=== PATIENT | male | born 1945 | race Caucasian/White ===

== ENCOUNTER 2023-11-27 10:30 | Observation (INO) ==
--- NOTE | 2023-11-03 09:44 | PAT Medication Instructions ---
Medication Instructions Date of Service November 03, 2023 Home Medications Aspirin Enteric Coated (Ecotrin Or Generic *) 81 mg PO DAILY Alfuzosin Hcl (Uroxatral) 10 mg PO DAILY alfuzosin 10 mg tablet,extended release 24 hr 10 mg PO HS finasteride 5 mg tablet 5 mg PO HS levothyroxine 175 mcg tablet 175 mcg PO QAM lisinopril 30 mg tablet 30 mg PO QAM lovastatin 20 mg tablet 20 mg PO HS omeprazole 20 mg capsule,delayed release 20 mg PO QAM oxycodone 5 mg capsule 10 mg PO HS timolol maleate 0.5 % eye drops 1 drp ophthalmic (eye) QAM ASK your prescriber and surgeon Aspirin Enteric Coated (Ecotrin Or Generic *) 81 mg PO DAILY DO NOT take the morning of surgery lisinopril 30 mg tablet 30 mg PO QAM Take morning of surgery With a small sip of water, OTHERWISE NOTHING TO EAT OR DRINK AFTER MIDNIGHT: Alfuzosin Hcl (Uroxatral) 10 mg PO DAILY levothyroxine 175 mcg tablet 175 mcg PO QAM omeprazole 20 mg capsule,delayed release 20 mg PO QAM timolol maleate 0.5 % eye drops 1 drp ophthalmic (eye) QAM Take evening before surgery alfuzosin 10 mg tablet,extended release 24 hr 10 mg PO HS finasteride 5 mg tablet 5 mg PO HS lovastatin 20 mg tablet 20 mg PO HS oxycodone 5 mg capsule 10 mg PO HS Other Notes If you have any questions please call us at [phone] or [phone] or [phone] or [phone]
--- NOTE | 2023-11-10 12:30 | Anesthesiology Consultation ---
Date of Service November 10, 2023 Assessment & Plan (1) Encounter for pre-operative examination: Chart Review Chart Review: Acceptable Risk for Surgery (pending routine PCP visit if available ) and Patient seen in Pre Admission Testing - Awaiting routine PCP visit 11/23/23 (Dr. Obi Gould [facility]) - Patient is NOT an ideal OPJ candidate (patient concerned with urinary retention post op due to BPH) Per PAT appt on 11/10/23, no recent illness/disease exposures, illness related symptoms, or recent illness/disease positive tests. Will leave to surgeon's discretion if preop Covid testing needed Teaching & Discussion Pre-Anesthesia Teaching/Discussion Notes: Instructed NPO after midnight before surgery,except medications with 15 cc of water. Medication instructions provided according to the PAT guidelines. History Surgery Operation Date: 11/27/23 12:00 Proposed Procedures p Right Total Shoulder Arthroplasty Reverse - Albert Alvarez, Height/Weight Height: 5 ft 9 in Weight: 99.9 kg Allergies Allergy/AdvReac Type Severity Reaction Status Date / Time No Known Allergies Allergy Verified 11/03/23 08:26 Medications Home Medications Medication Instructions Recorded Confirmed Last Taken alfuzosin 10 mg tablet,extended 10 mg PO HS 11/03/23 11/03/23 Unknown release 24 hr finasteride 5 mg tablet 5 mg PO 11/03/23 11/03/23 Unknown levothyroxine 175 mcg tablet 175 mcg PO QA 11/03/23 11/03/23 Unknown lisinopril 30 mg tablet 30 mg PO QA 11/03/23 11/03/23 Unknown lovastatin 20 mg tablet 20 mg PO HS 11/03/23 11/03/23 Unknown omeprazole 20 mg capsule,delayed 20 mg PO QA 11/03/23 11/03/23 Unknown release oxycodone 5 mg capsule 10 mg PO HS 11/03/23 11/03/23 Unknown timolol maleate 0.5 % eye drops 1 drp ophthalmic (eye) QA 11/03/23 11/03/23 Unknown Past Medical History Medical History BPH (benign prostatic hyperplasia) Dyslipidemia GERD (gastroesophageal reflux disease) well controlled and stable History of COVID-19 09/2020- no hosp; resolved HTN (hypertension) Hx of hiatal hernia Occ reflux - improved with Omeprazole Hypothyroidism Exercise / Class Metabolic Activity II 4-5 Yardwork/Stairs/Walk up hill (one flight of stairs - no chest pain or SOB) Past Surgical History Surgical History History of esophagogastroduodenoscopy (EGD) History of left knee replacement History of lumbar fusion x 2>> L-2 down Hx of arthroscopic knee surgery Hx of bilateral inguinal hernia repair Hx of colonoscopy Hx of cornea transplant x 4 Hx of tonsillectomy Past Anesthesia History No Hx of Anesthesia Complications and No Family Hx of Anesthesia Complications History of PONV No Hx of PONV and No Hx of Motion Sickness Social History Smoking Status: Never smoker Do You Dip or Chew Tobacco: No Hx Alcohol Use: Yes alcohol intake frequency: a few times a week Hx Substance Use: No substance use type: does not use Review of Systems Patient denies chest pain, shortness of breath, dyspnea on exertion, cough, wheezing, palpitations. No hx of seizures, stroke, VT, apnea/snoring. No hx of blood clots or blood transfusions Physical Exam Vital Signs VITALS BP 150/98 (manually). Check routinely at home- usually 110-120s usually systolically, 70-80s diastolically P 87 TEMP 98.5 SP02 96% RESP 16 Constitutional no acute distress ENMT Mouth: no TMJ clicking Thyromental Distance: > or= 3.5 Finger Breadths (3.5) Mallampati Class: I Permanent implants to side teeth Cap vs crown to side teeth/molar Neck + limited neck extension (mild) Respiratory normal respiratory effort; no respiratory distress Auscultation: lungs clear to auscultation bilaterally; no wheezes Cardiovascular Rate/Rhythm: regular rate and regular rhythm Heart Sounds: no murmur Vessels: no carotid bruit Musculoskeletal Spine: no pain with cervical ROM Extremities: extremities normal to inspection Psychiatric Orientation: alert Lab Results Anesthesia Preop Results Results Anesthesia Widget: WBC 9.35 K/ul (4.8-10.8) 11/10/23 Hgb 15.5 g/dl (14.0-18.0) 11/10/23 Hct 45.3 % (42.0-52.0) 11/10/23 Plt 238 K/uL (130-400) 11/10/23 Na 138 mmol/L (136-145) 11/10/23 K 4.1 mmol/L (3.5-5.1) 11/10/23 Cl 105 mmol/L (98-107) 11/10/23 CO2 28 mmol/L (21-32) 11/10/23 BUN 16 mg/dl (6-23) 11/10/23 Creat 0.74 mg/dl (0.6-1.4) 11/10/23 Glucose Level 106 mg/dl (70-99(Fasting)) H 11/10/23 PT 11.5 Seconds (9.0-12.0) 11/10/23 PTT 26 Seconds (21-31) 11/10/23 INR 1.1 (0.9-1.1) 11/10/23 Blood Type A Positive 11/10/23 Antibody Screen NEGATIVE 11/10/23 Testing Electrocardiogram Date: 11/10/23 Findings: + NSR @ (66bpm) Normal EKG per cardio Chest X-Ray Date: 11/10/23 Findings: + NAD and + cardiomegaly FINDINGS: Cardiac silhouette is enlarged. No pneumothorax, pleural effusion or pulmonary edema. Degenerative changes of the shoulders and spine. Partially imaged lumbar spinal fusion hardware.
[~2023-11-27 10:30] MED LIST: BUPIVACAINE 0.5 % 5 MG/1 ML PF 10ML VIAL ONE
[2023-11-27] MEDS ORDERED: fentaNYL citrate PF 100 MCG/2 ML VIAL ONE (10:49)
[2023-11-27] MEDS ORDERED: MIDAZOLAM HCL 1 MG/ML 2ML VIAL ONE (10:49)
[2023-11-27] MEDS ORDERED: DEXAMETHASONE SOD INJ 4 MG/ML VIAL ONE (10:51)
[2023-11-27] MEDS ORDERED: ONDANSETRON INJ 2 MG/ML 2 ML VIAL ONE (10:51)
[2023-11-27] MEDS ORDERED: PROPOFOL IV EMULSION 10 MG/ML 20 ML VIAL IV ONE (10:51)
[2023-11-27] MEDS ORDERED: GLYCOPYRROLATE 0.2 MG/ML VIAL ONE (10:51)
[2023-11-27] MEDS: LR 15ML/HR IV SCH (11:02)
[2023-11-27] MEDS: ACETAMINOPHEN 500 MG TAB PO SCH ×2 (11:02→16:10)
[2023-11-27] MEDS: LR 60ML/HR IV SCH (11:03)
[2023-11-27] MEDS: GABAPENTIN 300 MG CAP PO SCH (11:03)
[2023-11-27] MEDS: FAMOTIDINE 20 MG TAB PO SCH (11:03)
[2023-11-27] MEDS: dexAMETHasone**PF** 10 MG/ML VIAL IV SCH (11:03)
--- NOTE | 2023-11-27 11:22 | History & Physical Bridge Note ---
Date of Service November 27, 2023 History & Physical Bridge Note I have examined the patient, reviewed the History & Physical and in the interval since the performance of the History & Physical I have noted the following changes of clinical significance: no changes noted
[2023-11-27] MEDS ORDERED: ONDANSETRON INJ 2 MG/ML 2 ML VIAL IV PRN ×2 (11:53→15:03)
[2023-11-27] MEDS ORDERED: fentaNYL citrate PF 100 MCG/2 ML VIAL IV PRN (11:53)
[2023-11-27] MEDS ORDERED: ATROPINE SULFATE 0.1 MG/ML 10ML SYR IV PRN (11:53)
[2023-11-27] MEDS ORDERED: ePHEDrine sulfate 50 MG/ML AMP IV PRN (11:53)
[2023-11-27] MEDS: TRANEXAMIC ACID 1,000 MG **IV Pre-op IV SCH (11:57)
[2023-11-27] MEDS: ceFAZolin 2000MG 2,000 MG/15 ML SYR IV SCH ×2 (12:14→20:47)
[2023-11-27] MEDS ORDERED: ePHEDrine sulfate 50 MG/5 ML SYR ONE (12:39)
[2023-11-27] MEDS: ORTHO JOINT ANESTHETIC ONE (13:04)
[2023-11-27] MEDS: ROPIV 0.5% 246mg, Ketorolac 30mg, EPINEPHrine 0.5mg in NSS INFIL SCH (13:04)
[2023-11-27] MEDS: TRANEXAMIC ACID 1,000 MG **IV Intra-op IV SCH (13:19)
--- NOTE | 2023-11-27 13:29 | Operative Report ---
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 A tenodesis was opted. This was a separate and distinct portion of the procedure. For these reasons, a CPT code modifier 59 will be added to this case. Implants used: I used a [employer]omet Comprehensive reverse total shoulder arthroplasty system with a size 15 press fit micro humeral stem, a +3 offset humeral tray and a standard humeral bearing, a 25 mm large augment baseplate with a 6.5 mm central screw and superior and inferior locking screws, and a size 36 mm eccentric glenosphere. Tyrone arrived at [facility] for the above procedure. He was seen in the preoperative holding area and the operative extremity was identified and signed. He was given a preoperative antibiotic, TXA, and an interscalene nerve block. He was taken back to the operating room, laid on table in supine position, and put under general anesthesia. He was then put into the beachchair position. The shoulder was then prepped and draped in sterile fashion. A timeout was done and the patient and the operative extremity was properly identified. A deltopectoral approach was used. Dissection was taken down through the fascia and the deltoid was retracted laterally and the conjoined tendon was retracted medially. The anterior shoulder was exposed. The biceps groove was opened up and the biceps tendon was examined extensively. The biceps tendon demonstrated enlargement and inflammatory changes consistent with longstanding inflammation in the context of osteoarthritis and cuff arthropathy. The long head of the biceps tendon was then tenodesed to the upper border of the pectoralis major. This was a separate and distinct portion of the procedure. The subscapularis was then directly released off the lesser tuberosity with a peel technique. The inferior capsule was released and the humeral head was dislocated. A canal finding reamer was sent down the center of the humeral canal. Sequential reaming up to a size 15 reamer was done. Off that reamer, a proximal humeral resection guide was placed. The proximal humerus was resected at 135 of inclination and 25 of retroversion. Osteophytes were then removed and the glenoid was exposed. Time was spent doing a complete capsular and labral release. A ZimTelanetix Signature One guide was then attached onto the anterior rim of the glenoid. A 3.2 mm Steinmann pin was then placed in the reverse total shoulder arthroplasty hole. The glenoid baseplate was then reamed. The final size 25 mm large augment baseplate was then impacted in the place. A 6.5 mm central screw was then placed followed by superior and inferior locking screws. A 36 mm eccentric glenosphere was then impacted into place. Surrounding soft tissues were then injected with 100 cc an orthopedic pain control cocktail. The proximal humerus was then exposed. Sequential broaching of the humerus up to a size 15 broach was done. Off that broach a +3 offset humeral tray was trialed. The shoulder was then reduced, brought through a full range of motion, and felt to be stable. The shoulder was then dislocated and the broach was removed. The final size 15 micro press-fit humeral stem was then impacted into place. A standard +3 offset Humeral bearing was then snapped onto a humeral tray. The humeral tray was then impacted onto the humeral stem. The shoulder was once again reduced, brought through a full range of motion, and felt to be stable. The subscapularis was poor very poor quality and unable to be repaired. A dilute betadyne lavage was then done for 3 minutes. The joint was then irrigated with normal saline solution. Hemostasis was obtained. The interval was closed with 2-0 Vicryl suture. The skin was then closed with 2-0 Vicryl and rylie. A Silverlon dressing was placed and the arm was rested in a regular arm sling. He was then extubated and transferred to a hospital bed. He taken to the postanesthesia care unit in stable condition. He tolerated the procedure well. Albert Sanchez PA-C, was present for the entire procedure. He was critical for pa tient positioning, prepping, draping, retraction exposure, wound closure and application of sterile dressing. I attest to the content of the Intraoperative Record and any orders documented therein. Any exceptions are noted below.
--- NOTE | 2023-11-27 14:10 | XRay Report ---
XR shoulder RT min 2V routine HISTORY: 78 years-old Male Post shoulder surgery right shoulder arthroplasty COMPARISON: 11/10/2023 TECHNIQUE: 2 views of the right shoulder FINDINGS: Right shoulder arthroplasty demonstrates satisfactory alignment. Overlying skin rylie with expected postoperative soft tissue swelling and deep tissue air. IMPRESSION: Total joint arthroplasty with expected postoperative changes. ACT 112: Negative or not required by law. The above report was generated using voice recognition software. It may contain grammatical, syntax o r spelling errors. Electronically signed by: Yakov Lee M.D. 11/27/2023 2:08 PM
--- NOTE | 2023-11-27 14:17 | Anesthesiology Progress Note ---
Date of Service November 27, 2023 Anesthesia Post Procedure Vital Signs Vital Signs: Temp Pulse Pulse Resp BP Pulse Ox O2 Del Method 11/27/23 14:05 83 15 151/98 H 92 Room Air 11/27/23 13:55 96 H 22 149/96 H 94 Room Air 11/27/23 13:45 93 H 19 143/96 H 98 Room Air 11/27/23 13:39 36.4 C L 94 H 16 138/91 98 Oxymask 11/27/23 11:23 36.8 C 72 20 157/99 H 97 Room Air O2 Flow Rate 11/27/23 14:05 11/27/23 13:55 11/27/23 13:45 11/27/23 13:39 6 11/27/23 11:23 Transfer of Care Handoff Completed per policy Notes Mental Status: alert / awake / arousable Patient Amnestic to Procedure: Yes Nausea / Vomiting: adequately controlled Pain: adequately controlled Airway Patency, RR, SpO2: stable & adequate BP & HR: stable & adequate Hydration State: stable & adequate Anesthetic Complications: no major complications apparent
[2023-11-27] MEDS ORDERED: oxyCODONE HCL IR 5 MG TAB (IMMEDIATE RELEASE) PO PRN (15:03)
[2023-11-27] MEDS ORDERED: NALOXONE HCL 0.4 MG/1 ML VIAL/CARP IV PRN (15:03)
[2023-11-27] MEDS ORDERED: METOCLOPRAMIDE HCL INJ 5 MG/ML 2 ML VIAL IV PRN (15:03)
[2023-11-27] MEDS ORDERED: HYDROmorphone INJ 0.5 MG/0.5 ML SYR IV PRN (15:03)
[2023-11-27] MEDS ORDERED: MAGNESIUM HYDROXIDE SUSP 30 ML UDC PO PRN (15:03)
[2023-11-27] MEDS ORDERED: bisacodyL 10 MG SUPP PR PRN (15:03)
[2023-11-27] MEDS: SODIUM CHLORIDE 0.9% 1,000 ML IV SCH (15:30)
[2023-11-27] MEDS: KETOROLAC TROMETHAMINE 15 MG/ML VIAL IV SCH (16:10)
[2023-11-27] MEDS: LOVASTATIN 20 MG TAB PO SCH (20:40)
[2023-11-27] MEDS: SENNA 8.6 MG TAB PO SCH (20:40)
[2023-11-27] MEDS: FINASTERIDE 5 MG TAB PO SCH (20:40)
[2023-11-27] MEDS: DOCUSATE SODIUM 100 MG CAP PO SCH (20:40)
[2023-11-27] MEDS: TAMSULOSIN HCL 0.4 MG CAP PO SCH (20:40)
[2023-11-28] MEDS: LEVOTHYROXINE SODIUM 175 MCG TABLET PO SCH (05:52)
[2023-11-28] MEDS: PANTOprazole 40 MG TAB PO SCH (07:23)
[2023-11-28] MEDS: lisinopril 10 MG TAB PO SCH (07:24)
[2023-11-28] MEDS: MULTIVITAMIN TAB PO SCH (07:24)
[2023-11-28] MEDS: dexAMETHasone 4 MG TAB PO SCH (07:24)
[2023-11-28] MEDS: TIMOLOL MALEATE 0.5% OP SOLN 5 ML BTL OPB SCH (07:25)
--- NOTE | 2023-11-28 07:26 | Orthopedic Progress Note ---
Date of Service November 28, 2023 Assessment & Plan (1) Status post reverse total replacement of right shoulder: Overall he is doing very well. He is not having much pain in the right shoulder. He will be seen by physical therapy today for ambulation and range of motion exercises. He can be discharged home later today. He will follow-up with orthopedics in 2 weeks. Catarino Hansen was seen and examined at bedside this morning. Overall is doing very w ell. Is not having much pain in the right shoulder. He was able to get some sleep last night. Has no complaints.. Review of Systems All systems reviewed & are unremarkable except as noted in HPI & below. Physical Exam On physical examination of right shoulder, the dressing is clean and dry. He is wearing his sling as instructed. He has a little bit of flexion of his fingers but he has no extension of his wrist or his fingers at this time. Results & Data Results & Data Laboratory Results . Diagnostic Findings Postoperative x-rays of the right shoulder show the prosthesis to be in anatomic alignment without any evidence of fracture, screws, or loosening.. PG Care Time/CCT Total # of Minutes Spent Total Time Spent with Patient: Total time spent is greater than 50% in coordination of care (as documented) at patient's floor/unit and/or counseling patient: Coding Level of Care Code 85282 Post Operative Follow-Up Diagnoses Status post reverse total replacement of right shoulder Z96.611
--- NOTE | 2023-11-28 07:27 | Discharge Summary ---
Date of Service November 28, 2023 Principal Diagnosis Same as "Discharge Diagnosis" noted below under Discharge Instructions. Discharge Exam On physical examination of right shoulder, the dressing is clean and dry. He is wearing his sling as instructed. He has a little bit of flexion of his fingers but he has no extension of his wrist or his fingers at this time. Discharge Data Procedures Performed Operation Date: 11/27/23 12:00 Actual Procedures p Right Total Shoulder Arthroplasty Reverse(Right) - Albert Alvarez DO Ordered Studies 11/27/23 05:00 US - OR guided needle placemen Routine Hospital Course (1) Status post reverse total replacement of right shoulder: On November 27, 2023 Tyrone arrived at [facility] and underwent a right reverse shoulder replacement without complication. He had a general anesthetic and a right interscalene nerve block. Postoperatively he was placed in sling and transferred to the general orthopedic floors. His hospital course was uneventful. On postop day 1, his vital signs were stable and his pain is well-controlled. He was able to participate well with physical therapy doing ambulation and range of motion exercises. He was then discharged home. He will follow-up orthopedics in 2 weeks. PG Care Time/CCT Total # of Minutes Spent Total Time Spent with Patient: Total time spent is greater than 50% in coordination of care (as documented) at patient's floor/unit and/or counseling patient: Discharge Plan Discharge Items Patient Disposition: Home - Self-Care Reason For Visit: DJD Shoulder Right Discharge Diagnosis: Right reverse shoulder replacement Activity: Per Instructions section Non-emergency contact: Surgeon Call non-emergency contact if: your wound has increased redness and your wound has increased drainage Follow-up/Referrals: Obi Gould DO [Primary Care Provider] - Diet: Regular Addtl Attending Provider Instructions: Activity and Therapy Recommendations: * If you are using [facility] then therapy will be provided at your home until they feel you have accomplished all of your goals. * If you are using [facility] then Physical Therapy will be provided until they feel you are ready to start Outpatient Physical Therapy. * If you are not using home therapy then Outpatient Physical Therapy should start about 3-5 days from your day of surgery. Therapy will last about 8-12 weeks * Wear your sling for 3 weeks, unless otherwise instructed. You may remove your sling to shower and to dress, but otherwise, you should be in your sling at all times, including while sleeping * The shoulder replacement is very stable and you can use your hand while in the sling * You were shown a series of exercises in the hospital. Do these exercises daily including the exercises you were shown in physical therapy. Medications: * Narcotic You will likely be sent home from the hospital with a prescription for the narcotic pain medication that worked best throughout your stay. * Cefadroxil -take the antibiotic twice a day for 10 days to help prevent infection. * Other medications may be prescribed for specific circumstances. If you have any questions, please call the office at . * Resume previous home medications unless otherwise instructed Dressing Care: Leave the Silverlon dressing in place for 7 days. After 7 days you may remove the dressing. If the incision is not draining then you may leave the rylie open to air. If there is a little bit of drainage or if the rylie are getting stuck on your clothing then cover the incision with a dry dressing. The rylie will be removed at your 2 week follow-up appointment. Showering: You may shower with the Silverlon dressing in place. Do not let the shower spray hit the dressing directly. Pat the Silverlon dressing dry. If the dressing becomes wet underneath, then simply remove the dressing. Keep the incision dry until you are 7 days out from the day of surgery. After 7 days you may remove the Silverlon dressing and shower with the rylie exposed. Let soapy water run over the rylie and pat them dry. Do not scrub or soak the incision. Things To Watch For: * Drainage from the incision site that occurs more than one week after your surgery. * Increased redness at the incision site. * Fever above 102 degrees Fahrenheit. * Unusual chest pain or shortness of breath. * Call [facility] at with any of the above problems Follow-Up Visit: Follow-up with Dr. Alvarez's PA (Albert Sanchez) 2-3 weeks after your day of surgery. He will remove your rylie and answer any questions. If you have any additional questions or concerns, Dr Alvarez is usually in the office at the same time and will be available An appointment was probably scheduled when you signed-up for surgery in the office. If you have any questions call More detailed instructions as well as Frequently Asked Questions were provided in a folder by our office when you signed-up for surgery. Please review these instructions when you get home. If you have any further questions or concerns, please feel free to call the office at [phone] Pending Studies at Discharge: No Stand-Alone Forms: My [facility] Medications and DC Order Prescriptions: New oxycodone 5 mg Tablet 5 mg PO Q4H PRN (Reason: pain) Qty: 30 0RF cefadroxil 500 mg capsule 500 mg PO BID 10 Days Qty: 20 0RF Continued levothyroxine 175 mcg tablet 175 mcg PO QAM oxycodone 5 mg capsule 10 mg PO HS lisinopril 30 mg tablet 30 mg PO QAM omeprazole 20 mg Capsule,Delayed Release(Dr/Ec) 20 mg PO QAM lovastatin 20 mg tablet 20 mg PO HS timolol maleate 0.5 % drops 1 drp ophthalmic (eye) QAM finasteride 5 mg tablet 5 mg PO HS alfuzosin 10 mg tablet extended release 24 hr 10 mg PO HS Discharge Orders: Discharge Order (Routine); Ordered 11/28/23 Ordered By: Albert Alvarez Admission Data Admit Date/Time: 11/27/23 13:40 Attending Provider: Albert Alvarez Admit Provider: Albert Alvarez Primary Care Provider: Obi Gould
--- OUTSIDE RECORDS SUMMARY | 2023-11-28 09:14 | External Medical Summary | Continuity of Care Document ---
Author Name Unknown Organization [facility] Address [address] [place] [address] Phone [phone] Care Team Providers Care Metal Sorter Name Role Phone Cesar Arthur DO Care Team Information Rece iver [phone] Michael Barry MD Care Team Information Recei phill [phone] Shelley Madrigal MD Care Team Information Receive r [phone] Emiliano Benton MD Care Team Information Recei phill [phone] Jose Resendiz MD Care Team Information Rec eiver [phone] Problems Active Problems Provider Date Essential hypertension Obi Gould DO O nset: 12/27/2015 Hypothyroidism Obi Gould DO Onset: 0 12/27/2015 Pure hypercholesterolemia Ana Laura Palacios Onset: 12/27/2015 Bilateral primary open angle glaucoma Obi Gould DO Onset: 01/08/2018 Note: Per: Document: 6 - Retinal Eye Exam Benign prostatic hyperplasia without outflow obstruction Obi Gould DO Onset: 08/12/2017 History of polyp of colon Ana Laura Palacios Onset: 01/08/2018 Note: Per: Document: 4 - Colonoscopy Operative Report Generalized anxiety disorder Obi Gould DO Onset: 06/06/2022 Cerebral atrophy Obi Gould DO Onset: 05/21/2023 Social History Type Date Description Comments Sex Unknown Tobacco Use Reviewed: 05/21/23 Never Smoked Cigarette s Smoking Status Reviewed: 05/21/23 Never Smoked Cigaret susy Tobacco Use Reviewed: 05/21/23 Never Smoked Cigars Tobacco Use Reviewed: 05/21/23 Never Smoked A Pipe Smokeless Tobacco 05/21/2023 Never Used Smo keless Tobacco ETOH Use Occasionally con sumes alcohol Recreational Drug Use Never Used Drugs Exercise Type/Frequency 09/13/2019 Exercises regular ly [employer] - 3x a week Seat Belt/Car Seat sometimes uses seat be lt Guns in Home No Allergies and adverse reactions Active Allergies Criticality Reaction | Severity Comments Date Carvedilol Unable to assess criticality Urinary Retention. 11/13/2022 Inactive Allergies NKDA Unable to assess criticality 04/17/2015 Medications Active Medications SIG Qnty Indications Order ing Provider Date Aspirin Adult Low Nhaj67ap Tablets DR i by mouth every day R20.2 Quiana Lemus MD 05/08/2023 Proair Wxlydobgnc937(90Base) mcg/Act Aerosol inhale 1 times every 6 hours for shortness of breath/ cough (ok to sub ventolin if insurance prefers that) 1units R05.1 Obi Gould, DO 02/17/2023 Uvbshwquxe72ew Tablets Take One Tablet By Mouth Every Day For High Blood Pressure 90tabs I10 Obi Gould, DO 04/02/2022 Levothyroxine Hbsalt348jsd Tablets Take One Tablet By Mouth Every Day For Thryoid - 30-45 Min Prior To Breakfast - 90tabs E03.9 Obi Gould, DO 11/12/[address] Take 2 Capsules By Mouth Every Day For Stomach 180caps Obi Gould, DO 09/25/2015 Timolol Maleate0.5% Solution 1 drop each eye daily 15ml Obi Gould, DO 04/17/2015 Alfuzosin HCL ER10mg Tablets ER 24HR Take 1 Tablet By Mouth Every Day For Prostate 90tabs N40.0 Obi Gould, DO 04/17/2015 Uepmhtjajyr2rx Tablets Take 1 Tablet By Mouth Every Day For Prostate 90tabs N40.0 Obi Gould, DO 04/17/2015 Ghwjzijogm06fq Tablets Take 1 Tablet By Mouth Every Day For Cholesterol Treatment 90tabs E78.00 Obi Gould, DO 04/17/2015 Oxycodone HCL5mg Tablets 1.5 tablet by mouth q12-24 hours as needed (per Daren Louie = LEWIS) Unknown Medications Administered in Office Medication SIG Qnty Indications Ordering Provider Date Injection Kenalog 10 MG [facility] [id number] Obi Stephens Ana Laura ParkBryanna, DO 11/28/2020 Immunizations CPT Code Status Date Vaccine Lot # [id number] Given 07/27/2023 Sarscov2 Vaccin e 50 mcg/0.5 ML For Im Use 12 Yrs And Older 32826 Given 07/27/2023 Influenza Vacci ne-Administered at another facility 73223 Given 07/01/2022 Pfizer Sars-Cov -2 (Covid-19) Vx, BiValent Booster, 12+ 31020 Given 07/01/2022 Influenza Vaccine High Do se 0.5ML Age 65 & > 52738 Given 07/04/2021 Pfizer Sars-Cov -2 (Cov-19) vacc 30mcg/0.3ML 12Y+ EMR Doc Only U-FLU Given 06/19/2021 Influenza,Unspecified 29424 Given 12/28/2020 Pfizer Sars-Cov -2 (Cov-19) vacc 30mcg/0.3ML 12Y+ EMR Doc Only 25720 Given 12/07/2020 Pfizer Sars-Cov -2 (Cov-19) vacc 30mcg/0.3ML 12Y+ EMR Doc Only 66070 Given 07/05/2020 Influenza Virus Vaccine, Quadrivalent, Im Use 45142 Given 01/25/2020 Shingrix 94605 Given 08/04/2019 Influenza Vacci ne-Administered at another facility 64674 Given 08/04/2019 Shingrix 73485 Given 07/05/2018 Influenza Virus Vaccine, Recombinant Dna[place] [address] Given 08/05/2017 Influenza Vac, Split, Preservative Free High Dose Age 65 & > 83308 Given 07/02/2016 Pneumococcal Vaccine/Pneu movax 23 [id number] 42508 Given 08/01/2015 Influenza Virus Vaccine, Quadrivalent, Im Use 26850 Given 06/28/2015 Pneumococcal Conjugate-Pr evnar 13 [id number] 18689 Given 08/19/2014 Influenza Vac, Split 3 Yr s And Up 62784 Given 06/19/2014 Tdap (Tetanus, diphtheria & acel. pertussis) Adacel or Boostrix 88240 Refused 07/02/2016 Pneumococcal Vaccine/Pneu movax 23 [id number] Refused 07/02/2016 Influenza Vac, Split 3 Yr s And Up Vital Signs Date Vital Result Comment 05/21/2023 8:50am BP Systolic 138 mmHg BP Diastolic 75 mmHg Body Temperature 97.0 F Heart Rate 72 /min Respiratory Rate 12 /min Weight 211.25 lb Weight 95.823 kg Height 67.5 inches 5'7.50" BMI (Body Mass Index) 32.6 kg/m2 [place] Body Weight 148 lb 05/08/2023 4:12pm BP Systolic 156 mmHg BP Diastolic 94 mmHg BP Systolic Recheck 144 mmHg BP Diastolic Recheck 96 mmHg Body Temperature 98.3 F Heart Rate 84 /min Results Test Acquired Date Facility Test Result H/L Range N ote General Health Panel 11/16/2023 [facility] [address] [place] [address] [phone] TSH 0.86 uIU/mL 0.50-6.00 Comp. Met 11/16/2023 [facility] [address] [place] [address] [phone] Glucose 96 mg/dL 70-110 BUN 15 mg/dL 6-25 Creatinine 0.7 mg/dL 0.7-1.3 Sodium 140 mEq/L 135-145 Potassium 4.3 mEq/L 3.5-5.0 Chloride 105 mEq/L 95-107 Co-2 26 mEq/L 24-31 Alk Phos 55 IU/L 43-122 Alt(SGPT) 19 IU/L 10-40 Ast(Sgot) 18 IU/L 3-42 T.Bilirubin 0.9 mg/dL 0.1-1.3 Calcium 9.8 mg/dL 8.5-10.6 Tot.Protein 6.5 g/dL 5.8-8.0 Albumin 4.4 g/dL 3.0-5.2 Globulin 2.1 g/dL 2.0-3.4 GFR 117 ML/MIN/1.73SQM >60 CBC W/Diff 11/16/2023 [facility] [address] [place] [address] [phone] WBC 10.9 10^3/M3 High 3.1-9.2 RBC 5.04 10^6/M3 4.00-5.80 HGB 15.6 GR/DL 12.5-17.5 HCT 46.5 % 37.5-52.5 MCV 92.1 CUMICR 82.6-95.8 MCH 31.0 PICOGR 27.9-32.9 MCHC 33.7 % 32.6-35.4 RDW 14.2 % 11.4-14.6 PLT 224 10^3/M3 140-350 MPV 8.5 CUMICR 7.0-10.6 %Neut 64.8 % 40.0-75.0 %Lymph 20.9 % 17.0-45.0 %[place] 11.6 % High 1.0-11.0 %Eos 2.2 % 0.0-6.0 %Baso 0.5 % 0.0-2.0 #Neut 7.1 10^3/M3 1.5-8.0 #Lymph 2.3 10^3/M3 0.8-3.2 #[place] 1.3 10^3/M3 High 0.0-0.8 #Eos 0.2 10^3/m3 0.0-0.4 #Baso 0.0 10^3/m3 0.0-0.2 Lipid 11/16/2023 [facility] [address] [place] [address] [phone] Cholesterol 112 mg/dL 0-200 1 Triglyceride 59 mg/dL 0-150 2 HDLD 46 mg/dL See Comment 3 Measured LDL 63 mg/dL 0-130 4 Calc VLDL 11.8 mg/dL See Comment 5 Chol/HDL 2.4 RATIO See Comment 6 Non-HDL 66 mg/dL See Comment 7 Laboratory test finding 11/16/2023 [facility] [address] [place] [address] [phone] PSA Screen 0.2 ng/mL 0.0-4.0 Urinalysis 11/16/2023 [facility] [address] [place] [address] [phone] Color LIGHT-YELLO W Appearance CLEAR Clear Spec.Grav. 1.020 1.005-1.025 Leukocytes NEGATIVE Negative Nitrite NEGATIVE Negative PH 5.5 Low 6.0-7.5 Protein NEGATIVE Negative Urine Glucose NEGATIVE Negative Ketone NEGATIVE Negative Urobilinogen NORMAL E.U./DL Normal Bilirubin NEGATIVE Negative Blood NEGATIVE Negative WBC-U 0-2 /HPF 0-5/HPF RBC-U 0-2 /HPF 0-5/HPF Bacteria NONE SEEN None Seen Squamous 0-2 /HPF 0-5/HPF 1 CHOLESTEROL Less than 200mg/dl Low risk 201-239 mg/dl Borderline risk Equal to or greater 240mg/dl High risk 2 TRIGLYCERIDES Less than 150mg/dl Normal 150-199mg/dl Borderline 200-499mg/dl High Greater than 500mg/dl Very High 3 HDL <40mg/dl Elevated Risk 41-59mg/dl Risk >=60mg/dl Least Risk 4 LDL <100mg/dl Optimal 100-129mg/dl Near Optimal 130-159mg/dl Borderline High 160-189mg/dl High >=190 Very High 5 VLDL Less than 30mg/dl Normal 6 CHOL/HDL <4.0 Optimal 4.0-5.0 Borderline >6.0 High Risk 7 NON-HDL 30mg/dl higher than LDL Target Procedures Date Code Description Status 11/16/2023 G0103 PSA Blood Screen Completed 11/13/2023 83137 Therapy Proc, Neuromuscular Reeducation Of Movement Completed 11/13/2023 35019 Therapy Proc 1/> Area 15Min Ea Completed 11/11/2023 65936 Therapy Proc, Neuromuscular Reeducation Of Movement Completed 11/11/2023 95045 Therapy Proc 1/> Area 15Min Ea Completed 11/06/2023 09139 Therapy Proc, Neuromuscular Reeducation Of Movement Completed 11/06/2023 20090 Therapy Proc 1/> Area 15Min Ea Completed 11/04/2023 52394 Physical Therapy Evaluation High Complexity Completed 11/04/2023 46907 Therapy Proc, Neuromuscular Reeducation Of Movement Completed 11/04/2023 07837 Therapy Proc 1/> Area 15Min Ea Completed 05/21/2023 3078F PVRP Diastolic BP <80 mmHg C ompleted 05/21/2023 3075F PVRP Systolic BP 130 To 139 MMHG Completed 12/03/2022 29330274 Colonoscopy Completed Medical Devices Description No Information Available Encounters Type Date Location Provider Dx Diagnosis Office Visit 05/21/2023 8:45a [facility] Obi Gould, DO I10 Essential (primary) hypertension R20.2 Paresthesia of skin E03.9 Hypothyroidism, unsp ecified E78.00 Pure hypercholestero lemia, unspecified 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, unspecified Assessments Date Code Description Provider 11/16/2023 I10 Essential (primary) hypertroge nugent Obi Gould, DO 11/16/2023 I10 Essential (primary) hyperten jovanna Lab - [facility] 11/16/2023 E78.00 Pure hypercholesterolemia, u nspecified Obi Gould, DO 11/16/2023 E78.00 Pure hypercholesterolemia, u nspecified Lab - [facility] 11/16/2023 Z12.5 Encounter for sc reening for malignant neoplasm of prostate Obi Gould, DO 11/16/2023 Z12.5 Encounter for sc reening for malignant neoplasm of prostate Lab - [facility] 11/13/2023 M25.511 Pain in right shoulder Maida S Aaronsky, DPT 11/11/2023 M25.511 Pain in right shoulder Yadi than Warg, DPT 11/06/2023 M25.511 Pain in right shoulder Maida S Tomaslosky, DPT 11/04/2023 M25.511 Pain in right shoulder Yadi than Warg, DPT 05/21/2023 I10 Essential (primary) hypertroge nugent Obi Gould, DO 05/21/2023 R20.2 Paresthesia Obi vela, DO 05/21/2023 E03.9 Hypothyroidism, unspecified Obi Gould, DO 05/21/2023 E78.00 Pure hypercholesterolemia, u nspecified Obi Gould, DO 05/21/2023 G31.9 Degenerative dis ease of nervous system, unspecified Obi Gould DO Plan of Treatment Future Appointment(s):* 11/23/2023 1:15 pm - Obi Gould DO at [facility] Functional Status Description No Information Available Mental Status Description No Information Available Referrals Description No Information Available
--- OUTSIDE RECORDS SUMMARY | 2023-11-28 09:14 | External Medical Summary | Continuity of Care Document ---
Author Name Unknown Organization [facility] Address [address] [place] [address] Phone [phone] Care Team Providers Care Gem Technician Name Role Phone Cesar Arthur DO Care Team Information Rece iver [phone] Michael Barry MD Care Team Information Recei phill [phone] Shelley Madrigal MD Care Team Information Receive r [phone] Emiliano Benton MD Care Team Information Recei phill [phone] Jose Resendiz MD Care Team Information Rec eiver [phone] Problems Active Problems Provider Date Essential hypertension [...] Order ing Provider Date Aspirin Adult Low Oxln79el Tablets DR i by mouth every day R20.2 Quiana Lemus MD 05/08/2023 Proair Namguaapxc092(90Base) mcg/Act Aerosol inhale 1 times every 6 hours for shortness of breath/ cough (ok to sub ventolin if insurance prefers that) 1units R05.1 Obi Gould, DO 02/17/2023 Uzmyizwitd76fp Tablets Take One Tablet By Mouth Every Day For High Blood Pressure 90tabs I10 Obi Gould, DO 04/02/2022 Levothyroxine Ppkyka014vhp Tablets Take One Tablet By Mouth Every Day For Thryoid - 30-45 Min Prior To Breakfast - 90tabs E03.9 Obi Gould, DO 11/12/[address] Take 2 Capsules By Mouth Every Day For Stomach 180caps Obi Gould, DO 09/25/2015 Timolol Maleate0.5% Solution 1 drop each eye daily 15ml Obi Gould, DO 04/17/2015 Alfuzosin HCL ER10mg Tablets ER 24HR Take 1 Tablet By Mouth Every Day For Prostate 90tabs N40.0 Obi Gould, DO 04/17/2015 Jdotuvedfzx7fn Tablets Take 1 Tablet By Mouth Every Day For Prostate 90tabs N40.0 Obi Gould, DO 04/17/2015 Aucwtpspcc18il Tablets Take 1 Tablet By Mouth Every Day For Cholesterol Treatment 90tabs E78.00 Obi Gould, DO 04/17/2015 Oxycodone HCL5mg Tablets 1.5 tablet by mouth q12-24 hours as needed (per Daren Louie = LEWIS) Unknown Medications Administered in Office Medication SIG Qnty Indications Ordering Provider Date Injection Kenalog 10 MG [facility] [id number] Obi Stephens Ana Laura ParkBryanna, DO 11/28/2020 Immunizations CPT Code Status Date Vaccine Lot # [id number] Given 07/27/2023 Sarscov2 Vaccin e 50 mcg/0.5 ML For Im Use 12 Yrs And Older 55412 Given 07/27/2023 Influenza Vacci ne-Administered at another facility 08191 Given 07/01/2022 Pfizer Sars-Cov -2 (Covid-19) Vx, BiValent Booster, 12+ 07277 Given 07/01/2022 Influenza Vaccine High Do se 0.5ML Age 65 & > 10850 Given 07/04/2021 Pfizer Sars-Cov -2 (Cov-19) vacc 30mcg/0.3ML 12Y+ EMR Doc Only U-FLU Given 06/19/2021 Influenza,Unspecified 16961 Given 12/28/2020 Pfizer Sars-Cov -2 (Cov-19) vacc 30mcg/0.3ML 12Y+ EMR Doc Only 02952 Given 12/07/2020 Pfizer Sars-Cov -2 (Cov-19) vacc 30mcg/0.3ML 12Y+ EMR Doc Only 67121 Given 07/05/2020 Influenza Virus Vaccine, Quadrivalent, Im Use 76000 Given 01/25/2020 Shingrix 88082 Given 08/04/2019 Influenza Vacci ne-Administered at another facility 23534 Given 08/04/2019 Shingrix 43055 Given 07/05/2018 Influenza Virus Vaccine, Recombinant Dna[place] [address] Given 08/05/2017 Influenza Vac, Split, Preservative Free High Dose Age 65 & > 32379 Given 07/02/2016 Pneumococcal Vaccine/Pneu movax 23 [id number] 89391 Given 08/01/2015 Influenza Virus Vaccine, Quadrivalent, [place] Use 86132 Given 06/28/2015 Pneumococcal Conjugate-Pr evnar 13 [id number] 34904 Given 08/19/2014 Influenza Vac, Split 3 Yr s And Up 12585 Given 06/19/2014 Tdap (Tetanus, diphtheria & acel. pertussis) Adacel or Boostrix 58487 Refused 07/02/2016 Pneumococcal Vaccine/Pneu movax 23 20088 Refused 07/02/2016 Influenza Vac, Split 3 Yr s And Up Vital Signs Date Vital Result Comment 05/21/2023 8:50am BP Systolic 138 mmHg BP Diastolic 75 mmHg Body Temperature 97.0 F Heart Rate 72 /min Respiratory Rate 12 /min Weight 211.25 lb Weight 95.823 kg Height 67.5 inches 5'7.50" BMI (Body Mass Index) 32.6 kg/m2 [place] Body Weight 148 lb 05/08/2023 4:12pm BP Systolic 156 mmHg BP Diastolic 94 mmHg BP Systolic Recheck 144 mmHg BP Diastolic Recheck 96 mmHg Body Temperature 98.3 F Heart Rate 84 /min Results Test Acquired Date Facility Test Result H/L Range N ote General Health Panel 11/16/2023 [facility] [address] [place] [address] [phone] TSH 0.86 uIU/mL 0.50-6.00 Comp. Met 11/16/2023 [facility] [address] [place] [address] [phone] Glucose 96 mg/dL 70-110 BUN 15 mg/dL [...] GFR 117 ML/MIN/1.73SQM >60 CBC W/Diff 11/16/2023 [facility] [address] [place] [address] [phone] WBC 10.9 10^3/M3 High 3.1-9.2 RBC 5.04 10^6/M3 4.00-5.80 HGB 15.6 GR/DL 12.5-17.5 HCT 46.5 % 37.5-52.5 MCV 92.1 CUMICR 82.6-95.8 MCH 31.0 PICOGR 27.9-32.9 MCHC 33.7 % 32.6-35.4 RDW 14.2 % 11.4-14.6 PLT 224 10^3/M3 140-350 MPV 8.5 CUMICR 7.0-10.6 %Neut 64.8 % 40.0-75.0 %Lymph 20.9 % 17.0-45.0 %[place] 11.6 % High 1.0-11.0 %Eos 2.2 % 0.0-6.0 %Baso 0.5 % 0.0-2.0 #Neut 7.1 10^3/M3 1.5-8.0 #Lymph 2.3 10^3/M3 0.8-3.2 #[place] 1.3 10^3/M3 High 0.0-0.8 #Eos 0.2 10^3/m3 0.0-0.4 #Baso 0.0 10^3/m3 0.0-0.2 Lipid 11/16/2023 [facility] [address] [place] [address] [phone] Cholesterol 112 mg/dL 0-200 1 Triglyceride 59 mg/dL 0-150 2 HDLD 46 mg/dL See Comment 3 Measured LDL 63 mg/dL 0-130 4 Calc VLDL 11.8 mg/dL See Comment 5 Chol/HDL 2.4 RATIO See Comment 6 Non-HDL 66 mg/dL See Comment 7 Laboratory test finding 11/16/2023 [facility] [address] [place] [address] [phone] PSA Screen 0.2 ng/mL 0.0-4.0 Urinalysis 11/16/2023 [facility] [address] [place] [address] [phone] Color LIGHT-YELLO W Appearance CLEAR Clear Spec.Grav. [...] Status 11/16/2023 G0103 PSA Blood Screen Completed 11/11/2023 21227 Therapy Proc, Neuromuscular Reeducation Of Movement Completed 11/11/2023 06453 Therapy Proc 1/> Area 15Min Ea Completed 11/06/2023 84383 Therapy Proc, Neuromuscular Reeducation Of Movement Completed 11/06/2023 06278 Therapy Proc 1/> Area 15Min Ea Completed 11/04/2023 39252 Physical Therapy Evaluation High Complexity Completed 11/04/2023 27958 Therapy Proc, Neuromuscular Reeducation Of Movement Completed 11/04/2023 86118 Therapy Proc 1/> Area 15Min Ea Completed 05/21/2023 3078F PVRP Diastolic BP <80 mmHg C ompleted 05/21/2023 3075F PVRP Systolic BP 130 To 139 MMHG Completed 12/03/2022 [id number] Colonoscopy Completed Medical Devices Description No Information Available Encounters Type Date Location Provider Dx Diagnosis Office Visit 05/21/2023 8:45a [facility] Obi Gould, I10 Essential (primary) hypertension R20.2 Paresthesia of skin E03.9 Hypothyroidism, unsp ecified E78.00 Pure hypercholestero lemia, unspecified 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, unspecified Assessments Date Code Description Provider 11/16/2023 I10 Essential (primary) yasmany nugent Obi Gould, DO 11/16/2023 I10 Essential (primary) yasmany nugent Lab - [facility] 11/16/2023 E78.00 Pure hypercholesterolemia, u nspecified Obi Gould, DO 11/16/2023 E78.00 Pure hypercholesterolemia, u nspecified Lab - [facility] 11/16/2023 Z12.5 Encounter for sc reening for malignant neoplasm of prostate Obi Gould, DO 11/16/2023 Z12.5 Encounter for sc reening for malignant neoplasm of prostate Lab - [facility] 11/11/2023 M25.511 Pain in right shoulder Yadi than Alexandra, DPT 11/06/2023 M25.511 Pain in right shoulder Maida S Joselito, DPT 11/04/2023 M25.511 Pain in right shoulder Yadi than Warg, DPT 05/21/2023 I10 Essential (primary) yasmany nugent Obi Gould, DO 05/21/2023 R20.2 Paresthesia Obi vela, DO 05/21/2023 E03.9 Hypothyroidism, unspecified Obi Gould, DO 05/21/2023 E78.00 Pure hypercholesterolemia, u nspecified Obi Gould, DO 05/21/2023 G31.9 Degenerative dis ease of nervous system, unspecified Obi Gould DO Plan of Treatment Future Appointment(s):* 11/23/2023 1:15 pm - Obi Gould DO at [facility] Functional Status Description No Information Available Mental Status Description No Information Available Referrals Description No Information Available
--- OUTSIDE RECORDS SUMMARY | 2023-11-28 09:14 | External Medical Summary | Continuity of Care Document ---
Author Name Unknown Organization [facility] Address [address] [place] [address] Phone [phone] Care Team Providers Care Core Shaper Top Name Role Phone Cesar Arthur DO Care Team Information Rece iver [phone] Michael Barry MD Care Team Information Recei phill [phone] Shelley Madrigal MD Care Team Information Receive r [phone] Emiliano Benton MD Care Team Information Recei phill [phone] Jose Resendiz MD Care Team Information Rec eiver [phone] Problems Active Problems Provider Date Essential hypertension Obi Gould DO O nset: 12/27/2015 Hypothyroidism Oib Gould DO Onset: 0 12/27/2015 Pure hypercholesterolemia [...] Order ing Provider Date Aspirin Adult Low Vipz72yp Tablets DR i by mouth every day R20.2 Quiana Lemus MD 05/08/2023 Proair Sbpvlveoub734(90Base) mcg/Act Aerosol inhale 1 times every 6 hours for shortness of breath/ cough (ok to sub ventolin if insurance prefers that) 1units R05.1 Obi Gould, DO 02/17/2023 Kozltuttpb59cy Tablets Take One Tablet By Mouth Every Day For High Blood Pressure 90tabs I10 Obi Gould, DO 04/02/2022 Levothyroxine Jbftvb531tpy Tablets Take One Tablet By Mouth Every Day For Thryoid - 30-45 Min Prior To Breakfast - 90tabs E03.9 Obi Gould, DO 11/12/[address] Take 2 Capsules By Mouth Every Day For Stomach 180caps Obi Gould, DO 09/25/2015 Timolol Maleate0.5% Solution 1 drop each eye daily 15ml Obi Gould, DO 04/17/2015 Alfuzosin HCL ER10mg Tablets ER 24HR Take 1 Tablet By Mouth Every Day For Prostate 90tabs N40.0 Obi Gould, DO 04/17/2015 Jbzwoibymrp9sq Tablets Take 1 Tablet By Mouth Every Day For Prostate 90tabs N40.0 Obi Gould, DO 04/17/2015 Sdvcikoyvu41gs Tablets Take 1 Tablet By Mouth Every Day For Cholesterol Treatment 90tabs E78.00 Obi Gould, DO 04/17/2015 Oxycodone HCL5mg Tablets 1.5 tablet by mouth q12-24 hours as needed (per Daren Louie = LEWIS) Unknown Medications Administered in Office Medication SIG Qnty Indications Ordering Provider Date Injection Kenalog 10 MG [facility] [id number] Obi Stephens Ana Laura ParkBryanna, DO 11/28/2020 Immunizations CPT Code Status Date Vaccine Lot # [id number] Given 07/27/2023 Sarscov2 Vaccin e 50 mcg/0.5 ML For Im Use 12 Yrs And Older 84901 Given 07/27/2023 Influenza Vacci ne-Administered at another facility 18636 Given 07/01/2022 Pfizer Sars-Cov -2 (Covid-19) Vx, BiValent Booster, 12+ 85455 Given 07/01/2022 Influenza Vaccine High Do se 0.5ML Age 65 & > 29680 Given 07/04/2021 Pfizer Sars-Cov -2 (Cov-19) vacc 30mcg/0.3ML 12Y+ EMR Doc Only U-FLU Given 06/19/2021 Influenza,Unspecified 66092 Given 12/28/2020 Pfizer Sars-Cov -2 (Cov-19) vacc 30mcg/0.3ML 12Y+ EMR Doc Only 64773 Given 12/07/2020 Pfizer Sars-Cov -2 (Cov-19) vacc 30mcg/0.3ML 12Y+ EMR Doc Only 61938 Given 07/05/2020 Influenza Virus Vaccine, Quadrivalent, Im Use 57542 Given 01/25/2020 Shingrix 52285 Given 08/04/2019 Influenza Vacci ne-Administered at another facility 49548 Given 08/04/2019 Shingrix 86179 Given 07/05/2018 Influenza Virus Vaccine, Recombinant Dna[place] [address] Given 08/05/2017 Influenza Vac, Split, Preservative Free High Dose Age 65 & > 14875 Given 07/02/2016 Pneumococcal Vaccine/Pneu movax 23 [id number] 17933 Given 08/01/2015 Influenza Virus Vaccine, Quadrivalent, Im Use 01398 Given 06/28/2015 Pneumococcal Conjugate-Pr evnar 13 [id number] 61343 Given 08/19/2014 Influenza Vac, Split 3 Yr s And Up 29797 Given 06/19/2014 Tdap (Tetanus, diphtheria & acel. pertussis) Adacel or Boostrix 79846 Refused 07/02/2016 Pneumococcal Vaccine/Pneu movax 23 [id number] Refused 07/02/2016 Influenza Vac, Split 3 Yr s And Up Vital Signs Date Vital Result Comment 05/21/2023 8:50am BP Systolic 138 mmHg BP Diastolic 75 mmHg Body Temperature 97.0 F Heart Rate 72 /min Respiratory Rate 12 /min Weight 211.25 lb Weight 95.823 kg Height 67.5 inches 5'7.50" BMI (Body Mass Index) 32.6 kg/m2 [place] Body Weight 148 lb 05/08/2023 4:12pm BP Systolic 156 mmHg BP Diastolic 94 mmHg BP Systolic Recheck 144 mmHg BP Diastolic Recheck 96 mmHg Body Temperature 98.3 F Heart Rate 84 /min Results Test Acquired Date Facility Test Result H/L Range N ote General Health Panel 11/16/2023 [facility]. [address] [place] [address] [phone] TSH 0.86 uIU/mL 0.50-6.00 Comp. Met 11/16/2023 [facility]. [address] [place] [address] [phone] Glucose 96 mg/dL 70-110 BUN 15 mg/dL [...] GFR 117 ML/MIN/1.73SQM >60 CBC W/Diff 11/16/2023 [facility]. [address] [place] [address] [phone] WBC 10.9 10^3/M3 High 3.1-9.2 RBC 5.04 10^6/M3 4.00-5.80 HGB 15.6 GR/DL 12.5-17.5 HCT 46.5 % 37.5-52.5 MCV 92.1 CUMICR 82.6-95.8 MCH 31.0 PICOGR 27.9-32.9 MCHC 33.7 % 32.6-35.4 RDW 14.2 % 11.4-14.6 PLT 224 10^3/M3 140-350 MPV 8.5 CUMICR 7.0-10.6 %Neut 64.8 % 40.0-75.0 %Lymph 20.9 % 17.0-45.0 %[place] 11.6 % High 1.0-11.0 %Eos 2.2 % 0.0-6.0 %Baso 0.5 % 0.0-2.0 #Neut 7.1 10^3/M3 1.5-8.0 #Lymph 2.3 10^3/M3 0.8-3.2 #[place] 1.3 10^3/M3 High 0.0-0.8 #Eos 0.2 10^3/m3 0.0-0.4 #Baso 0.0 10^3/m3 0.0-0.2 Lipid 11/16/2023 [facility]. [address] [place] [address] [phone] Cholesterol 112 mg/dL 0-200 1 Triglyceride 59 mg/dL 0-150 2 HDLD 46 mg/dL See Comment 3 Measured LDL 63 mg/dL 0-130 4 Calc VLDL 11.8 mg/dL See Comment 5 Chol/HDL 2.4 RATIO See Comment 6 Non-HDL 66 mg/dL See Comment 7 Laboratory test finding 11/16/2023 [facility]. [address] [place] [address] [phone] PSA Screen 0.2 ng/mL 0.0-4.0 Urinalysis 11/16/2023 [facility]. [address] [place] [address] [phone] Color LIGHT-YELLO W Appearance CLEAR Clear Spec.Grav. [...] 11/16/2023 G0103 PSA Blood Screen Completed 11/11/2023 31542 Therapy Proc, Neuromuscular Reeducation Of Movement Completed 11/11/2023 66712 Therapy Proc 1/> Area 15Min Ea Completed 11/06/2023 57482 Therapy Proc, Neuromuscular Reeducation Of Movement Completed 11/06/2023 09281 Therapy Proc 1/> Area 15Min Ea Completed 11/04/2023 14828 Physical Therapy Evaluation High Complexity Completed 11/04/2023 94162 Therapy Proc, Neuromuscular Reeducation Of Movement Completed 11/04/2023 56819 Therapy Proc 1/> Area 15Min Ea Completed 05/21/2023 3078F PVRP Diastolic BP <80 mmHg C ompleted 05/21/2023 3075F PVRP Systolic BP 130 To 139 MMHG Completed 12/03/2022 [id number] Colonoscopy Completed Medical Devices Description No Information [...] 1:15 pm - Obi Gould DO at [facility] Functional Status Description No Information Available Mental Status Description No Information Available Referrals Description No Information Available
--- OUTSIDE RECORDS SUMMARY | 2023-11-28 09:14 | External Medical Summary | Continuity of Care Document ---
Author Name Unknown Organization [facility] Address [address] [place] [address] Phone [phone] Care Team Providers Care Circuit Court Magistrate Name Role Phone Cesar Arthur DO Care Team Information Rece iver [phone] Michael Barry MD Care Team Information Recei phill [phone] Shelley Madrigal MD Care Team Information Receive r [phone] Emiliano Benton MD Care Team Information Recei phill [phone] Jose Resendiz MD Care Team Information Rec eiver [phone] Problems Active Problems Provider Date Essential hypertension [...] Description Comments Sex Unknown Tobacco Use Reviewed: 11/23/23 Never Smoked Cigarette s Smoking Status Reviewed: 11/23/23 Never Smoked Cigaret susy Tobacco Use Reviewed: 05/21/23 Never Smoked Cigars Tobacco Use Reviewed: 11/23/23 Never Smoked A Pipe Smokeless Tobacco 11/23/2023 Never Used Smo keless Tobacco ETOH Use [...] SIG Qnty Indications Order ing Provider Date Levothyroxine Edmlsb270rng Tablets one by mouth daily - take on 45 min prior to eating. cancel the 175 mg rx 90tabs E03.9 Obi Gould, DO 11/23/2023 Xgoskdmzux93tm Tablets Take One Tablet By Mouth Every Day For High Blood Pressure 90tabs I10 Obi Gould, DO 04/02/[address] Take 2 Capsules By Mouth Every Day For Stomach 180caps Obi Gould, DO 09/25/2015 Timolol Maleate0.5% Solution 1 drop each eye daily 15ml Obi Gould, DO 04/17/2015 Alfuzosin HCL ER10mg Tablets ER 24HR Take 1 Tablet By Mouth Every Day For Prostate 90tabs N40.0 Obi Gould, DO 04/17/2015 Npobhzfzhhq8wt Tablets Take 1 Tablet By Mouth Every Day For Prostate 90tabs N40.0 Obi Gould, DO 04/17/2015 Maokavronb69cy Tablets Take 1 Tablet By Mouth Every Day For Cholesterol Treatment 90tabs E78.00 Obi Gould, DO 04/17/2015 Oxycodone HCL5mg Tablets 1.5 tablet by mouth q12-24 hours as needed (per Daren Louie = LEWIS) Unknown Medications Administered in Office Medication SIG Qnty Indications Ordering Provider Date Injection Kenalog [address] [facility] [id number] Obi Gould, DO 11/28/2020 Immunizations CPT Code Status Date Vaccine Lot # [id number] Given 07/27/2023 Sarscov2 Vaccin e 50 mcg/0.5 ML For Im Use 12 Yrs And Older 15510 Given 07/27/2023 Influenza Vacci ne-Administered at another facility 16891 Given 07/01/2022 Pfizer Sars-Cov -2 (Covid-19) Vx, BiValent Booster, 12+ 60424 Given 07/01/2022 Influenza Vaccine High Do se 0.5ML Age 65 & > 24671 Given 07/04/2021 Pfizer Sars-Cov -2 (Cov-19) vacc 30mcg/0.3ML 12Y+ EMR Doc Only U-FLU Given 06/19/2021 Influenza,Unspecified 62509 Given 12/28/2020 Pfizer Sars-Cov -2 (Cov-19) vacc 30mcg/0.3ML 12Y+ EMR Doc Only 74091 Given 12/07/2020 Pfizer Sars-Cov -2 (Cov-19) vacc 30mcg/0.3ML 12Y+ EMR Doc Only 54642 Given 07/05/2020 Influenza Virus Vaccine, Quadrivalent, Im Use 13497 Given 01/25/2020 Shingrix 78533 Given 08/04/2019 Influenza Vacci ne-Administered at another facility 16124 Given 08/04/2019 Shingrix 80280 Given 07/05/2018 Influenza Virus Vaccine, Recombinant Dna[place] [address] Given 08/05/2017 Influenza Vac, Split, Preservative Free High Dose Age 65 & > 64627 Given 07/02/2016 Pneumococcal Vaccine/Pneu movax 23 [id number] 68869 Given 08/01/2015 Influenza Virus Vaccine, Quadrivalent, Im Use 69791 Given 06/28/2015 Pneumococcal Conjugate-Pr evnar 13 [id number] 65293 Given 08/19/2014 Influenza Vac, Split 3 Yr s And Up 96440 Given 06/19/2014 Tdap (Tetanus, diphtheria & acel. pertussis) Adacel or Boostrix 34148 Refused 07/02/2016 Pneumococcal Vaccine/Pneu movax 23 26119 Refused 07/02/2016 Influenza Vac, Split 3 Yr s And Up Vital Signs Date Vital Result Comment 11/23/2023 1:21pm BP Systolic 130 mmHg BP Diastolic 76 mmHg Body Temperature 96.2 F Heart Rate 74 /min Respiratory Rate 12 /min Weight 219.00 lb Weight 99.338 kg Height 67.5 inches 5'7.50" BMI (Body Mass Index) 33.8 kg/m2 [place] Body Weight 148 lb 05/21/2023 8:50am BP Systolic 138 mmHg BP Diastolic 75 mmHg Body Temperature 97.0 F Heart Rate 72 /min Respiratory Rate 12 /min Weight 211.25 lb Weight 95.823 kg Height 67.5 inches 5'7.50" BMI (Body Mass Index) 32.6 kg/m2 [place] Body Weight 148 lb Results Test Acquired Date Facility Test Result H/L Range N ote General Health Panel 11/16/2023 [facility]. [address] [place] [address] [phone] TSH 0.86 uIU/mL 0.50-6.00 Comp. Met 11/16/2023 [facility]. [address] [place] [address] [phone] Glucose 96 mg/dL 70-110 BUN 15 mg/dL [...] GFR 117 ML/MIN/1.73SQM >60 CBC W/Diff 11/16/2023 [facility]. [address] [place] [address] [phone] WBC 10.9 10^3/M3 High 3.1-9.2 RBC 5.04 10^6/M3 4.00-5.80 HGB 15.6 GR/DL 12.5-17.5 HCT 46.5 % 37.5-52.5 MCV 92.1 CUMICR 82.6-95.8 MCH 31.0 PICOGR 27.9-32.9 MCHC 33.7 % 32.6-35.4 RDW 14.2 % 11.4-14.6 PLT 224 10^3/M3 140-350 MPV 8.5 CUMICR 7.0-10.6 %Neut 64.8 % 40.0-75.0 %Lymph 20.9 % 17.0-45.0 %[place] 11.6 % High 1.0-11.0 %Eos 2.2 % 0.0-6.0 %Baso 0.5 % 0.0-2.0 #Neut 7.1 10^3/M3 1.5-8.0 #Lymph 2.3 10^3/M3 0.8-3.2 #Angelina 1.3 10^3/M3 High 0.0-0.8 #Eos 0.2 10^3/m3 0.0-0.4 #Baso 0.0 10^3/m3 0.0-0.2 Lipid 11/16/2023 [facility]. [address] [place], [place] [address] [phone] Cholesterol 112 mg/dL 0-200 1 Triglyceride 59 mg/dL 0-150 2 HDLD 46 mg/dL See Comment 3 Measured LDL 63 mg/dL 0-130 4 Calc VLDL 11.8 mg/dL See Comment 5 Chol/HDL 2.4 RATIO See Comment 6 Non-HDL 66 mg/dL See Comment 7 Laboratory test finding 11/16/2023 [facility]. [address] [place], [place] [address] [phone] PSA Screen 0.2 ng/mL 0.0-4.0 Urinalysis 11/16/2023 [facility]. [address] [place], [place] [address] [phone] Color LIGHT-YELLO W Appearance CLEAR Clear Spec.Grav. [...] LDL Target Procedures Date Code Description Status 11/23/2023 3078F PVRP Diastolic BP <80 mmHg C ompleted 11/23/2023 3075F PVRP Systolic BP 130 To 139 MMHG Completed 11/23/2023 1101F PT SCR Future Fall Risk, No Fall Or 1 W/Out Injury Completed 11/17/2023 56967 Therapy Proc, Neuromuscular Reeducation Of Movement Completed 11/17/2023 26719 Therapy Proc 1/> Area 15Min Ea Completed 11/16/2023 G0103 PSA Blood Screen Completed 11/13/2023 35044 Therapy Proc, Neuromuscular Reeducation Of Movement Completed 11/13/2023 95172 Therapy Proc 1/> Area 15Min Ea Completed 11/11/2023 63579 Therapy Proc, Neuromuscular Reeducation Of Movement Completed 11/11/2023 10193 Therapy Proc 1/> Area 15Min Ea Completed 11/06/2023 45922 Therapy Proc, Neuromuscular Reeducation Of Movement Completed 11/06/2023 61315 Therapy Proc 1/> Area 15Min Ea Completed 11/04/2023 33916 Physical Therapy Evaluation High Complexity Completed 11/04/2023 75070 Therapy Proc, Neuromuscular Reeducation Of Movement Completed 11/04/2023 92919 Therapy Proc 1/> Area 15Min Ea Completed 12/03/2022 [id number] Colonoscopy Completed Medical Devices Description No Information Available Encounters Type Date Location Provider Dx Diagnosis Office Visit 11/23/2023 1:15p [facility] Obi Gould, DO Z00.00 Encntr for general adult medical exam w/o abnormal findings I10 Essential (primary) hypertension E78.00 Pure hypercholestero lemia, unspecified E03.9 Hypothyroidism, unsp ecified 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 adult medical examination without abnormal findings Obi Gould, DO 11/23/2023 I10 Essential (primary) yasmany Gould, DO 11/23/2023 E78.00 Pure hypercholesterolemia, u nspecified Obi Gould, DO 11/23/2023 E03.9 Hypothyroidism, unspecified Obi Gould, DO 11/23/2023 G31.9 Degenerative dis ease of nervous system, unspecified Obi Gould, DO 11/23/2023 N40.0 Benign prostatic hyperplasia without lower urinary tract symptoms Obi Gould, DO 11/23/2023 M25.511 Pain in right shoulder Jose G Gould, DO 11/23/2023 Z68.33 Body mass index [BMI] 33.0-3 3.9, adult Obi Gould, DO 11/17/2023 M25.511 Pain in right shoulder Yadi Morris, DPT 11/16/2023 I10 Essential (primary) hypertroge Gould, DO 11/16/2023 I10 Essential (primary) hypertroge nugent Lab - [facility] 11/16/2023 E78.00 Pure hypercholesterolemia, u nspecified Obi Gould, DO 11/16/2023 E78.00 Pure hypercholesterolemia, u nspecified Lab - [facility] 11/16/2023 Z12.5 Encounter for sc reening for malignant neoplasm of prostate Obi Gould, DO 11/16/2023 Z12.5 Encounter for sc reening for malignant neoplasm of [facility] 11/13/2023 M25.511 Pain in right shoulder Maida Roper Joselito, DPT 11/11/2023 M25.511 Pain in right shoulder Yadicat zavala Alexandra, DPT 11/06/2023 M25.511 Pain in right shoulder Maida Roper Joselito, DPT 11/04/2023 M25.511 Pain in right shoulder Yadi Morris, DPT Plan of Treatment Future Appointment(s):* 11/28/2024 1:00 pm - Obi Gould DO at [facility] * 05/25/2024 10:30 am - Obi Gould DO at [facility] * 01/22/2024 11:40 am - Lab - [facility] Functional Status Description No Information Available Mental Status Description No Information Available Referrals Description No Information Available
--- OUTSIDE RECORDS SUMMARY | 2023-11-28 09:14 | External Medical Summary | Continuity of Care Document ---
Author Name Unknown Organization [facility] Address [address] [place] [address] Phone [phone] Care Team Providers Care Security Investigator Name Role Phone Cesar Arthur DO Care Team Information Rece iver [phone] Michael Barry MD Care Team Information Recei phill [phone] Shelley Madrigal MD Care Team Information Receive r [phone] Emiliano Benton MD Care Team Information Recei phill [phone] Jose Resendiz MD Care Team Information Rec eiver [phone] Problems Active Problems Provider Date Essential hypertension [...] Qnty Indications Order ing Provider Date Levothyroxine Qmzens962uxw Tablets one by mouth daily - take on 45 min prior to eating. cancel the 175 mg rx 90tabs E03.9 Obi Gould, DO 11/23/2023 Zlcbrnrhvd49tv Tablets Take One Tablet By Mouth Every Day For High Blood Pressure 90tabs I10 Obi Gould, DO 04/02/[address] Take 2 Capsules By Mouth Every Day For Stomach 180caps Obi Gould, DO 09/25/2015 Timolol Maleate0.5% Solution 1 drop each eye daily 15ml Obi Gould, DO 04/17/2015 Alfuzosin HCL ER10mg Tablets ER 24HR Take 1 Tablet By Mouth Every Day For Prostate 90tabs N40.0 Obi Gould, DO 04/17/2015 Tfpggodzcff9qe Tablets Take 1 Tablet By Mouth Every Day For Prostate 90tabs N40.0 Obi Gould, DO 04/17/2015 Gjmvxxgszg78wu Tablets Take 1 Tablet By Mouth Every Day For Cholesterol Treatment 90tabs E78.00 Obi Gould, DO 04/17/2015 Oxycodone HCL5mg Tablets 1.5 tablet by mouth q12-24 hours as needed (per Daren Louie = LEWIS) Unknown Medications Administered in Office Medication SIG Qnty Indications Ordering Provider Date Injection Kenalog 10 MG [facility] [id number] Obi Gould, DO 11/28/2020 Immunizations CPT Code Status Date Vaccine Lot # [id number] Given 07/27/2023 Sarscov2 Vaccin e 50 mcg/0.5 ML For Im Use 12 Yrs And Older 77123 Given 07/27/2023 Influenza Vacci ne-Administered at another facility 27741 Given 07/01/2022 Pfizer Sars-Cov -2 (Covid-19) Vx, BiValent Booster, 12+ 35836 Given 07/01/2022 Influenza Vaccine High Do se 0.5ML Age 65 & > 32863 Given 07/04/2021 Pfizer Sars-Cov -2 (Cov-19) vacc 30mcg/0.3ML 12Y+ EMR Doc Only U-FLU Given 06/19/2021 Influenza,Unspecified 48636 Given 12/28/2020 Pfizer Sars-Cov -2 (Cov-19) vacc 30mcg/0.3ML 12Y+ EMR Doc Only 74352 Given 12/07/2020 Pfizer Sars-Cov -2 (Cov-19) vacc 30mcg/0.3ML 12Y+ EMR Doc Only 00356 Given 07/05/2020 Influenza Virus Vaccine, Quadrivalent, Im Use 89178 Given 01/25/2020 Shingrix 47698 Given 08/04/2019 Influenza Vacci ne-Administered at another facility 60725 Given 08/04/2019 Shingrix 46878 Given 07/05/2018 Influenza Virus Vaccine, Recombinant Dna[place] [address] Given 08/05/2017 Influenza Vac, Split, Preservative Free High Dose Age 65 & > 55764 Given 07/02/2016 Pneumococcal Vaccine/Pneu movax 23 [id number] 37841 Given 08/01/2015 Influenza Virus Vaccine, Quadrivalent, Im Use 78532 Given 06/28/2015 Pneumococcal Conjugate-Pr evnar 13 [id number] 04026 Given 08/19/2014 Influenza Vac, Split 3 Yr s And Up 34246 Given 06/19/2014 Tdap (Tetanus, diphtheria & acel. pertussis) Adacel or Boostrix 01196 Refused 07/02/2016 Pneumococcal Vaccine/Pneu movax 23 24998 Refused 07/02/2016 Influenza Vac, Split 3 Yr s And Up Vital Signs Date Vital Result Comment 11/23/2023 1:21pm BP Systolic 130 mmHg BP Diastolic 76 mmHg Body Temperature 96.2 F Heart Rate 74 /min Respiratory Rate 12 /min Weight 219.00 lb Weight 99.338 kg Height 67.5 inches 5'7.50" BMI (Body Mass Index) 33.8 kg/m2 [place] Body Weight 148 lb 05/21/2023 8:50am BP Systolic 138 mmHg BP Diastolic 75 mmHg Body Temperature 97.0 F Heart Rate 72 /min Respiratory Rate 12 /min Weight 211.25 lb Weight 95.823 kg Height 67.5 inches 5'7.50" BMI (Body Mass Index) 32.6 kg/m2 [place] Body Weight 148 lb Results Test Acquired Date Facility Test Result H/L Range N ote General Health Panel 11/16/2023 [facility]. [address] [place] [address] [phone] TSH 0.86 uIU/mL 0.50-6.00 Comp. Met 11/16/2023 [facility]. [address] [place] [address] [phone] Glucose 96 mg/dL 70-110 BUN 15 mg/dL [...] GFR 117 ML/MIN/1.73SQM >60 CBC W/Diff 11/16/2023 [facility]. [address] [place] [address] [phone] WBC 10.9 10^3/M3 High 3.1-9.2 RBC 5.04 10^6/M3 4.00-5.80 HGB 15.6 GR/DL 12.5-17.5 HCT 46.5 % 37.5-52.5 MCV 92.1 CUMICR 82.6-95.8 MCH 31.0 PICOGR 27.9-32.9 MCHC 33.7 % 32.6-35.4 RDW 14.2 % 11.4-14.6 PLT 224 10^3/M3 140-350 MPV 8.5 CUMICR 7.0-10.6 %Neut 64.8 % 40.0-75.0 %Lymph 20.9 % 17.0-45.0 %[place] 11.6 % High 1.0-11.0 %Eos 2.2 % 0.0-6.0 %Baso 0.5 % 0.0-2.0 #Neut 7.1 10^3/M3 1.5-8.0 #Lymph 2.3 10^3/M3 0.8-3.2 #[place] 1.3 10^3/M3 High 0.0-0.8 #Eos 0.2 10^3/m3 0.0-0.4 #Baso 0.0 10^3/m3 0.0-0.2 Lipid 11/16/2023 [facility]. [address] [place], [place] [address] [phone] Cholesterol 112 mg/dL 0-200 1 Triglyceride 59 mg/dL 0-150 2 HDLD 46 mg/dL See Comment 3 Measured LDL 63 mg/dL 0-130 4 Calc VLDL 11.8 mg/dL See Comment 5 Chol/HDL 2.4 RATIO See Comment 6 Non-HDL 66 mg/dL See Comment 7 Laboratory test finding 11/16/2023 [facility]. [address] [place], [place] [address] [phone] PSA Screen 0.2 ng/mL 0.0-4.0 Urinalysis 11/16/2023 [facility]. [address] [place], [place] 240[address] [phone] Color LIGHT-YELLO W Appearance CLEAR Clear Spec.Grav. [...] Fall Or 1 W/Out Injury Completed 11/17/2023 26970 Therapy Proc, Neuromuscular Reeducation Of Movement Completed 11/17/2023 86577 Therapy Proc 1/> Area 15Min Ea Completed 11/16/2023 G0103 PSA Blood Screen Completed 11/13/2023 02903 Therapy Proc, Neuromuscular Reeducation Of Movement Completed 11/13/2023 84956 Therapy Proc 1/> Area 15Min Ea Completed 11/11/2023 01833 Therapy Proc, Neuromuscular Reeducation Of Movement Completed 11/11/2023 48652 Therapy Proc 1/> Area 15Min Ea Completed 11/06/2023 95218 Therapy Proc, Neuromuscular Reeducation Of Movement Completed 11/06/2023 31494 Therapy Proc 1/> Area 15Min Ea Completed 11/04/2023 22937 Physical Therapy Evaluation High Complexity Completed 11/04/2023 83823 Therapy Proc, Neuromuscular Reeducation Of Movement Completed 11/04/2023 23557 Therapy Proc 1/> Area 15Min Ea Completed 12/03/2022 [id number] Colonoscopy Completed Medical Devices Description No Information Available Encounters Type Date Location Provider Dx Diagnosis Office Visit 11/23/2023 1:15p Lucila Stephens D Harold, DO Z00.00 Encntr for general adult medical [...] Code Description Provider 11/23/2023 Z00.00 Encounter [facility] medical examination without abnormal findings Obi [...] 11/11/2023 M25.511 Pain in right shoulder Yadi zavala Alexandra, DPT 11/06/2023 M25.511 Pain in right shoulder Maida Roper Joselito, DPT 11/04/2023 M25.511 Pain in right shoulder Yadi sally Morris, DPT Plan of Treatment Future Appointment(s):* 11/28/2024 1:00 pm - Obi Gould DO at [facility] * 05/25/2024 10:30 am - Obi Gould DO at [facility] * 01/22/2024 11:40 am - Lab - [facility] at [facility] Functional Status Description No Information Available Mental Status Description No Information Available Referrals Description No Information Available
--- OUTSIDE RECORDS SUMMARY | 2023-11-28 09:14 | External Medical Summary | Summary of Care ---
Author Name Unknown Organization [facility] Address [address] [place] [address] Care Team Providers Care Metal Sprayer Production Name Role Phone Obi Gould Ana Laura HELLER Primary Care Provider [phone] Reason for Visit * Reason Comments Pain NRS, ( 01/12 ) NO FAL LS Encounter Details Date Type Department Care Team (Late st Contact Info) Description 11/18/2023 11:10 AM EST Office Visit Interventional Roxy Fuller [facility] [address] [place] [phone] Ann Louie PA-C [address] [place] [address] Failed back syndrome*; Chronic prescription opiate use; Encounter for medication monitoring Allergies Active Allergy Reactions Criticality Noted Date Comments Carvedilol 02/03/2023 Urinary Retention. Urinary Retention. Grass Pollen(K-O-R-T-Swt Salvador) Medium 05/15/2015 Other reaction(s): Allergy test positive Grass, trees, sneezing, runny nose Other Allergy (See Comments) Allergy test positive Medium 05/15/2015 Grass, trees, sneezing, runny nose documented as of this encounter (statuses as of 11/19/2023) Medications Medication Sig Dispensed Refills Start Date End Date Status ALFUZOSIN HCL ER 10 MG PO TB24 TAKE 1 TABLET EVERY DAY 3 09/06/2014 Active FINASTERIDE 5 MG PO TABS TAKE 1 TABLET EVERY DAY 3 08/22/2014 Active TIMOLOL MALEATE 0.5 % OP SOLN INSTILL 1 DROP IN BOTH EYES EVERY MORNING 5 08/21/2014 Active triamcinolone acetonide (ARISTOCORT) 0.1 % cream Apply topically to affected area 2 times a day as needed (hemorrhoids). 30 g 0 03/28/2020 Active Cephalexin 500 MG Oral Capsule (Keflex) Prior to dental appt 0 05/18/2021 Active Loratadine 10 MG Oral Capsule Take 1 Capsule by mouth as needed. 0 Active Lisinopril 30 MG Oral Tablet TAKE ONE TABLET BY MOUTH EVERY DAY FOR HIGH BLOOD PRESSURE 0 06/29/2022 Active Levothyroxine Sodium 175 MCG Oral Capsule Take by mouth daily. 0 Active Omeprazole 20 MG Oral Capsule Delayed Release (PriLOSEC) Take 1 Capsule by mouth in the morning. Mondays and 40mg. 0 Active Levothyroxine Sodium 175 MCG Oral Tablet (Levoxyl) 0 01/28/2023 Active Lovastatin 20 MG Oral Tablet (Mevacor) 0 01/28/2023 Active Aspirin 81 MG Oral Tablet Delayed Release Take 1 Tablet by mouth in the morning. 0 05/08/2023 Active oxyCODONE HCl 5 MG Oral Tablet (Oxy IR)Indications:Fa iled back syndrome Take 0.5 Tablets by mouth every 6 hours as needed for Pain, Moderate. Do not start before October 17, 2023. 60 Tablet 0 10/17/2023 11/18/2023 Discontinued (Refill) documented as of this encounter (statuses as of 11/19/2023) Active Problems Problem Noted Date Diagnosed Date Desensitization to allergy shot 06/16/2017 GERD (gastroesophageal reflux disease) 5 S/P Jignesh fundoplication (w [facility] gastrostomy tube) procedure 10/16/2014 Wears glasses 10/16/2014 Chronic back pain 10/16/2014 BPH (benign prostatic hyperplasia) 10/16/2014 History of corneal transplant 10/16/2014 Keratoconus of both eyes 10/16/2014 Dyslipidemia 10/16/2014 Glaucoma 10/16/2014 Hypertension 10/16/2014 Hypothyroid 10/16/2014 Allergic rhinitis 10/16/2014 documented as of this encounter (statuses as of 11/19/2023) Immunizations Name Administration Dates Next Due COVID-19 mRNA, LNP-s, No Pre serve, 2-Dose Series (Pfizer) 07/04/2021,12/28/2020,12/07/2020 Covid-19, Mrna, Lnp-s, Pf, B ivalent, 30 Mcg, IM, 12 yrs and above (Pfizer) 07/01/2022 Pneumococcal Conjugate Vacc, 13 Valent (Prevnar) 06/28/2015 Pneumococcal Polysaccharide PPV23 (Pneumovax) 07/02/2016 Season Influenza, Quad, PF, Adjuvanted, 65+ Yrs, IM (FLUAD) 07/01/2022 Seasonal Influenza Virus Vac cine, Unspecified Formulation 06/19/2021 Seasonal Influenza, Quadriva lent Hd, 65+ Yrs 06/06/2020 Seasonal Influenza, Recombin ant, RIV4, PF, (Flublock) 07/05/2018 Seasonal Influenza, Split, I IV3, With Preserve, Inj 08/19/2014 Seasonal Influenza, Trivalen t, High Dose, No Preserve, IM 08/04/2019,07/23/2018 Zoster Vaccine Recombinant (Shingrix) 01/25/2020 ,08/04/2019 documented as of this encounter Social History Tobacco Use Types Packs/Day Years Used Date Smoking Tobacco: Never Smokeless Tobacco: Never Tobacco Cessation:Counseling Given: Not Answered Alcohol Use Standard Drinks/Week Comments Yes 3.3 (1 standard drink = 0.6 oz p ure alcohol) socially Sex and Gender Information Value Date Recorded Sex Assigned at Not on file Gender Identity Not on file Sexual Orientation Not on file Job Start Date Occupation Industry Not on file Not on file Not on file documented as of this encounter Last Filed Vital Signs Vital Sign Reading Time Taken Comments Blood Pressure 189/113 11/18/2023 11:07 AM EST RIGHT ARM (SETTING Pulse 79 11/18/2023 11:03 AM EST Temperature - - Respiratory Rate 14 11/18/2023 11:0 3 AM EST Oxygen Saturation 98% 11/18/2023 11: 03 AM EST Inhaled Oxygen Concentration - - Weight 100 kg (220 lb 8 oz) 11/18/2023 11:03 AM EST Height - - Body Mass Index 32.56 07/15/2023 11:27 AM EDT documented in this encounter Functional Status Functional Status Response Date of Assess ment Are you deaf or do you have serious difficulty h earing? No 11/27/2015 Are you blind or do you have serious difficulty seeing, even when wearing glasses? No 11/27/2015 Do you have serious difficul ty walking or climbing stairs? (5 years old or older) No 11/27/2015 Do you have difficulty dress ing or bathing? (5 years old or older) No 11/27/2015 Because of a physical, menta l, or emotional condition, do you have difficulty doing errands alone such as visiting a doctor s office or shopping? (15 years old or older) No 11/27/19 16 Cognitive Status Response Date of Assessm ent Because of a physical, menta l, or emotional condition, do you have serious difficulty concentrating, remembering, or making decisions? (5 years old or older) No 11/27/2015 documented as of this encounter Progress Notes * Ann Louie PA-C - 11/18/2023 11:05 AM EST History of Present Illness: The patient is a 78-year-old gentleman with a remote history for lumbar spinal fusion and a long history of chronic lumbosacral pain. He is a former patient of Dr. Godfrey and Claire MACHADO continuing under our care for ongoing medication management. He returns for interval follow up and reports minimal low back pain. He continues oxycodone 5 mg half a tablet every 6 hours [id number]. He notes that his medications are working well for his usual low back pain and he denies adverse effects. PDMP query demonstrate a last refill date of 10/17/2023, #60/30 days. There is 1/2 tablet remaining per witnessed pill count. He has an active pain care agreement. Comm with low risk. UDT is consistent. Mr. Simmons is reportedly scheduled for reverse right total shoulder surgery, next week(11/27/23) with Dr. Albert Alvarez in [place]. He brings a slip of paper from the surgeon, requesting 30 extra Oxycodone with dosing instructions of 1 tablet q 4 hours, to carry him through surgery. Additionally he describes worsening right knee pain with history for previous tibial osteotomy, now with advanced degenerative changes on x-ray. He follows with [facility] for this. Review of Systems: Respiratory: No shortness of breath. Gastrointestinal: No constipation. Neurological: No drowsiness. Physical Examination: Constitutional: Well-developed. Appropriately groomed. Eyes: Extraocular movements grossly intact. No miosis. Respiratory: Nonlabored respirations. No accessory muscle use. Musculoskeletal: Gait is unassisted. Slow transitions. Normal bulk and tone. Reduced ROM right shoulder with pain. Integumentary: No rash. No diaphoresis. Neurological: Cranial nerves grossly intact bilaterally. Psychiatric: Alert. Oriented. Euthymic. No sedation. No signs of intoxication. Impression and Recommendations: The patient returns in follow-up of chronic lumbosacral pain with remote history for lumbar spinal fusion. He continues to find benefit from low-dose OxyCodone which he utilizes [id number]. There are no adverse effects noted. No aberrant drug-related behavior identified. The [facility] prescription drug monitoring program report was reviewed and appropriate. He has anactive pain care agreement in place. Last UDT consistent. COMM with low risk. I will renew the usual prescription for oxycodone today, 5mg, #60/30 days. The patient is advised that his orthopedic surgeon may recommend he uptitrate the dose for some time after his shoulder surgery. This is a reasonable exception to our pain care agreement and any additional medication requirements perioperatively will be deferred to his surgeon. He may also sign a pain agreement with his surgeon for management of perioperative shoulder pain. We will otherwise continue close regular follow-up and pain. He will return in 4 weeks. The case has been discussed with Dr. Lofton, who has advised regarding the diagnosis and treatment and agrees with the plan as outlined. documented in this encounter Plan of Treatment Upcoming Encounters Date Type Department Care Team (Late st Contact Info) Description 12/22/2023 10:30 AM EDT Immunization/Inje ction Allergy/Immunology, [place] [address] [place] [address] Nurse Carrie [address]over[address] [place] [address] 12/23/2023 10:40 AM EDT Office Visit Interventional Pain, [place] [facility] [address] [facility] [address] [place] [phone] Ann Louie PA-C [address] [place] [address] 01/19/2024 10:30 AM EDT Immunization/Inje ction Allergy/Immunology, [place] [address] [place] [address] [place], Nurse Peds [address] [place] [address] 02/02/2024 10:30 AM EDT Immunization/Inje ction Allergy/Immunology, [place] [address] [place] [address] [place], Nurse Peds [address] [place] [address] 07/19/2024 11:00 AM EDT Office Visit Allergy/Immunology, [place] [address] Syed Philippe MD [address] [place] [address] Health Maintenance Due Date Last Done Comments Depression Screening 1957 Albumin/Creatinine Ratio 1965 Hepatitis C Screening 1965 DTaP,Tdap,and Td Vaccines (1 - Tdap) 1966 Influenza Vaccine (FLU shot) (#1) 2023 07/01/2022, 06/19/2021, 06/06/2020, Additional history exists GFR 11/16/2024 11/16/2023, 020 11/2022, 02/12/2022, Additional history exists TSH 11/16/2024 11/16/2023, 0 11/2022, 01/10/2022, Additional history exists COLONOSCOPY-EVERY 5 YRS AGES 18-100 12/04/2027 12/03/2022, 11/28/2019 Pneumococcal Vaccine: 65+ Years Completed 07/02/2016, 06/28/2015 Zoster Vaccines Completed 01/25/2020, 08/04/2019 COLONOSCOPY-EVERY 3 YRS AGES 18-100 Discontinued 12/03/2022, 11/28/2019 COVID-19 Vaccine Completed 07/27/2023, , 07/04/2021, Additional history exists GARDASIL-HPV IMMUNIZATION SERIES Aged Out No longer eligible based on patient's age to complete this topic Hepatitis B Aged Out No longer eligi ble based on patient's age to complete this topic MENINGOCOCCAL (MENACTRA/MENVEO) Aged Out No longer eligible based on patient's age to complete this topic documented as of this encounter Medical Devices Not on filedocumented as of this encounter Visit Diagnoses Diagnosis Failed back syndrome- Primary Other unspecified back disorder Chronic prescription opiate use Encounter for medication monitoring Encounter for therapeutic drug monitoring documented in this encounter Care Teams Metal Sprayer Production Relationship Specialty Start Date End Date Obi Gould DO [address] [place] [address] PCP - General Family Medicine 11/27/15 documented as of this encounter
--- OUTSIDE RECORDS SUMMARY | 2023-11-28 09:14 | External Medical Summary | Summary of Care ---
Author Name Unknown Organization [facility] Address [address] [place] [address] Care Team Providers Care Light Bulb Replacer Name Role Phone Obi Gould Ana Larua HELLER Primary Care Provider [phone] Reason for Visit * Reason Comments Pain NRS, ( 01/12 ) NO FAL LS Encounter Details Date Type Department Care Team (Late st Contact Info) Description 11/18/2023 11:10 AM EST Office Visit Interventional Roxy Fuller [facility] [address] [place] [phone] Ann Louie PA-C [address] [place] [address] Failed back syndrome*; Chronic prescription opiate use; Encounter for medication monitoring Allergies Active Allergy Reactions Criticality Noted Date Comments Carvedilol 02/03/2023 Urinary Retention. Urinary Retention. Grass Pollen(K-O-R-T-Swt Salvador) Medium 05/15/2015 Other reaction(s): Allergy test positive Grass, trees, sneezing, runny nose Other Allergy (See Comments) Allergy test positive Medium 05/15/2015 Grass, trees, sneezing, runny nose documented as of this encounter (statuses as of 11/18/2023) Medications Medication Sig Dispensed Refills Start Date [...] as of this encounter (statuses as of 11/18/2023) Active Problems Problem Noted Date Diagnosed Date Desensitization to allergy shot 06/16/2017 GERD (gastroesophageal reflux disease) 5 S/P Jignesh fundoplication (w [facility] gastrostomy tube) procedure 10/16/2014 Wears glasses 10/16/2014 Chronic back pain 10/16/2014 BPH (benign prostatic hyperplasia) 10/16/2014 History of corneal transplant 10/16/2014 Keratoconus of both eyes 10/16/2014 Dyslipidemia 10/16/2014 Glaucoma 10/16/2014 Hypertension 10/16/2014 Hypothyroid 10/16/2014 Allergic rhinitis 10/16/2014 documented as of this encounter (statuses as of 11/18/2023) Immunizations Name Administration Dates Next Due COVID-19 [...] mg half a tablet every 6 hours [id number]. He notes that his medications are working [...] next week(11/27/23) with Dr. Albert Alvarez in [place]. He brings a slip of paper from the surgeon, requesting 30 extra Oxycodone with dosing instructions of 1 tablet q 4 hours, to carry him through surgery. Additionally he describes worsening right knee pain with history for previous tibial osteotomy, now with advanced degenerative changes on x-ray. He follows with [facility] for this. Review of Systems: Respiratory: [...] benefit from low-dose OxyCodone which he utilizes [id number]. There are no adverse effects noted. No aberrant drug-related behavior identified. The [facility] prescription drug monitoring program report was reviewed [...] 12/22/2023 10:30 AM EDT Immunization/Inje ction Allergy/Immunology, [place] [address] [place] [address] Nurse [address]over[address] [place] [address] 12/23/2023 10:40 AM EDT Office Visit Interventional Pain, [place] [facility] [address] [facility] [address] [place] [phone] Ann Louie PA-C [address] [place] [address] 01/19/2024 10:30 AM EDT Immunization/Inje ction Allergy/Immunology, [place] [address] [place] [address] [place], Nurse Peds [address] [place] [address] 02/02/2024 10:30 AM EDT Immunization/Inje ction Allergy/Immunology, [place] [address] [place] [address] [place], Nurse Peds [address] [place] [address] 07/19/2024 11:00 AM EDT Office Visit Allergy/Immunology, [place] [address] Syed Philippe MD [address] [place] [address] Health Maintenance Due Date Last Done Comments [...] monitoring documented in this encounter Care Teams Light Bulb Replacer Relationship Specialty Start Date End Date Obi Gould DO [address] [place] [address] PCP - General Family Medicine 11/27/15 documented as of this encounter
--- OUTSIDE RECORDS SUMMARY | 2023-11-28 09:14 | External Medical Summary | Continuity of Care Document ---
Author Name Unknown Organization [facility] Address [address] [place] [address] Phone [phone] Care Team Providers Care Net Architect Name Role Phone Cesar Arthur DO Care Team Information Rece iver [phone] Michael Barry MD Care Team Information Recei phill [phone] Shelley Madrigal MD Care Team Information Receive r [phone] Emiliano Benton MD Care Team Information Recei phill [phone] Jose Resendiz MD Care Team Information Rec eiver [phone] Problems Active Problems Provider Date Essential hypertension [...] Order ing Provider Date Aspirin Adult Low Ojlv96th Tablets DR i by mouth every day R20.2 Quiana Lemus MD 05/08/2023 Proair Qlscuwiswr034(90Base) mcg/Act Aerosol inhale 1 times every 6 hours for shortness of breath/ cough (ok to sub ventolin if insurance prefers that) 1units R05.1 Obi Gould, DO 02/17/2023 Qtrcngnjfv06wz Tablets Take One Tablet By Mouth Every Day For High Blood Pressure 90tabs I10 Obi Gould, DO 04/02/2022 Levothyroxine Endlvd961szb Tablets Take One Tablet By Mouth Every Day For Thryoid - 30-45 Min Prior To Breakfast - 90tabs E03.9 Obi Gould, DO 11/12/[address] Take 2 Capsules By Mouth Every Day For Stomach 180caps Obi Gould, DO 09/25/2015 Timolol Maleate0.5% Solution 1 drop each eye daily 15ml Obi Gould, DO 04/17/2015 Alfuzosin HCL ER10mg Tablets ER 24HR Take 1 Tablet By Mouth Every Day For Prostate 90tabs N40.0 Obi Gould, DO 04/17/2015 Svavzdzwiig2bd Tablets Take 1 Tablet By Mouth Every Day For Prostate 90tabs N40.0 Obi Gould, DO 04/17/2015 Bgvtvcjeff35tz Tablets Take 1 Tablet By Mouth Every Day For Cholesterol Treatment 90tabs E78.00 Obi Gould, DO 04/17/2015 Oxycodone HCL5mg Tablets 1.5 tablet by mouth q12-24 hours as needed (per Daren Louie = [place]) Unknown Medications Administered in Office Medication SIG Qnty Indications Ordering Provider Date Injection Kenalog 10 MG [facility] [id number] Obi Stephens Ana Laura ParkBryanna, DO 11/28/2020 Immunizations CPT Code Status Date Vaccine Lot # [id number] Given 07/27/2023 Sarscov2 Vaccin e 50 mcg/0.5 ML For Im Use 12 Yrs And Older [address] Given 07/27/2023 Influenza Vacci ne-Administered at another facility [address] Given 07/01/2022 Pfizer Sars-Cov -2 (Covid-19) Vx, BiValent Booster, 12+ 37545 Given 07/01/2022 Influenza Vaccine High Do se 0.5ML Age 65 & > [address] Given 07/04/2021 Pfizer Sars-Cov -2 (Cov-19) vacc 30mcg/0.3ML 12Y+ EMR Doc Only U-FLU Given 06/19/2021 Influenza,Unspecified 591[address] Given 12/28/2020 Pfizer Sars-Cov -2 (Cov-19) vacc 30mcg/0.3ML 12Y+ EMR Doc Only [address] Given 12/07/2020 Pfizer Sars-Cov -2 (Cov-19) vacc 30mcg/0.3ML 12Y+ EMR Doc Only [address] Given 07/05/2020 Influenza Virus Vaccine, Quadrivalent, Im Use 99260 Given 01/25/2020 Shingrix 53533 Given 08/04/2019 Influenza Vacci ne-Administered at another facility [address] Given 08/04/2019 Shingrix 92936 Given 07/05/2018 Influenza Virus Vaccine, Recombinant D[place] [address] Given 08/05/2017 Influenza Vac, Split, Preservative Free High Dose Age 65 & > [address] Given 07/02/2016 Pneumococcal Vaccine/Pneu movax 23 [id number] 63428 Given 08/01/2015 Influenza Virus Vaccine, Quadrivalent, Im Use 95819 Given 06/28/2015 Pneumococcal Conjugate-Pr evnar 13 [id number] 22860 Given 08/19/2014 Influenza Vac, Split 3 Yr s And Up [address] Given 06/19/2014 Tdap (Tetanus, diphtheria & acel. pertussis) Adacel or Boostrix 82030 Refused 07/02/2016 Pneumococcal Vaccine/Pneu movax 23 [id number] Refused 07/02/2016 Influenza Vac, Split 3 Yr s And Up Vital Signs Date Vital Result Comment 05/21/2023 8:50am BP Systolic 138 mmHg BP Diastolic 75 mmHg Body Temperature 97.0 F Heart Rate 72 /min Respiratory Rate 12 /min Weight 211.25 lb Weight 95.823 kg Height 67.5 inches 5'7.50" BMI (Body Mass Index) 32.6 kg/m2 [place] Body Weight 148 lb 05/08/2023 4:12pm BP Systolic 156 mmHg BP Diastolic 94 mmHg BP Systolic Recheck 144 mmHg BP Diastolic Recheck 96 mmHg Body Temperature 98.3 F Heart Rate 84 /min Results Test Acquired Date Facility Test Result H/L Range N ote General Health Panel 11/16/2023 [facility] [address] [place] [address] [phone] TSH 0.86 uIU/mL 0.50-6.00 Comp. Met 11/16/2023 [facility] [address] [place] [address] [phone] Glucose 96 mg/dL 70-110 BUN 15 mg/dL [...] GFR 117 ML/MIN/1.73SQM >60 CBC W/Diff 11/16/2023 [facility] [address] [place] [address] [phone] WBC 10.9 10^3/M3 High 3.1-9.2 RBC 5.04 10^6/M3 4.00-5.80 HGB 15.6 GR/DL 12.5-17.5 HCT 46.5 % 37.5-52.5 MCV 92.1 CUMICR 82.6-95.8 MCH 31.0 PICOGR 27.9-32.9 MCHC 33.7 % 32.6-35.4 RDW 14.2 % 11.4-14.6 PLT 224 10^3/M3 140-350 MPV 8.5 CUMICR 7.0-10.6 %Neut 64.8 % 40.0-75.0 %Lymph 20.9 % 17.0-45.0 %Lamoure 11.6 % High 1.0-11.0 %Eos 2.2 % 0.0-6.0 %Baso 0.5 % 0.0-2.0 #Neut 7.1 10^3/M3 1.5-8.0 #Lymph 2.3 10^3/M3 0.8-3.2 #Lamoure 1.3 10^3/M3 High 0.0-0.8 #Eos 0.2 10^3/m3 0.0-0.4 #Baso 0.0 10^3/m3 0.0-0.2 Lipid 11/16/2023 [facility] [address] [place] [address] [phone] Cholesterol 112 mg/dL 0-200 1 Triglyceride 59 mg/dL 0-150 2 HDLD 46 mg/dL See Comment 3 Measured LDL 63 mg/dL 0-130 4 Calc VLDL 11.8 mg/dL See Comment 5 Chol/HDL 2.4 RATIO See Comment 6 Non-HDL 66 mg/dL See Comment 7 Laboratory test finding 11/16/2023 [facility] [address] [place] [address] [phone] PSA Screen 0.2 ng/mL 0.0-4.0 Urinalysis 11/16/2023 [facility] [address] [place] [address] [phone] Color LIGHT-YELLO W Appearance CLEAR Clear Spec.Grav. [...] 11/16/2023 G0103 PSA Blood Screen Completed 11/11/2023 69332 Therapy Proc, Neuromuscular Reeducation Of Movement Completed 11/11/2023 40310 Therapy Proc 1/> Area 15Min Ea Completed 11/06/2023 75965 Therapy Proc, Neuromuscular Reeducation Of Movement Completed 11/06/2023 28049 Therapy Proc 1/> Area 15Min Ea Completed 11/04/2023 79802 Physical Therapy Evaluation High Complexity Completed 11/04/2023 83328 Therapy Proc, Neuromuscular Reeducation Of Movement Completed 11/04/2023 43915 Therapy Proc 1/> Area 15Min Ea Completed 05/21/2023 3078F PVRP Diastolic BP <80 mmHg C ompleted 05/21/2023 3075F PVRP Systolic BP 130 To 139 MMHG Completed 12/03/2022 [id number] Colonoscopy Completed Medical Devices Description No Information [...] DPT 11/06/2023 M25.511 Pain in right shoulder Amida S Joselito, DPT 11/04/2023 M25.511 Pain in [...] 1:15 pm - Obi Gould DO at [facility] Functional Status Description No Information Available Mental Status Description No Information Available Referrals Description No Information Available
--- OUTSIDE RECORDS SUMMARY | 2023-11-28 09:15 | External Medical Summary | Continuity of Care Document ---
Author Name Unknown Organization [facility] Address [address] [place] [address] Phone [phone] Care Team Providers Care Shipping Support Name Role Phone Cesar Arthur DO Care Team Information Rece iver [phone] Michael Barry MD Care Team Information Recei phill [phone] Shelley Madrigal MD Care Team Information Receive r [phone] Emiliano Benton MD Care Team Information Recei phill [phone] Jose Resendiz MD Care Team Information Rec eiver [phone] Problems Active Problems Provider Date Essential hypertension [...] Order ing Provider Date Aspirin Adult Low Ouoe12pr Tablets DR i by mouth every day R20.2 Quiana Lemus MD 05/08/2023 Proair Lgdpyodjhw907(90Base) mcg/Act Aerosol inhale 1 times every 6 hours for shortness of breath/ cough (ok to sub ventolin if insurance prefers that) 1units R05.1 Obi Gould, DO 02/17/2023 Nyijusjbkv24lz Tablets Take One Tablet By Mouth Every Day For High Blood Pressure 90tabs I10 Obi Gould, DO 04/02/2022 Levothyroxine Kcwcsr284wao Tablets Take One Tablet By Mouth Every Day For Thryoid - 30-45 Min Prior To Breakfast - 90tabs E03.9 Obi Gould, DO 11/12/[address] Take 2 Capsules By Mouth Every Day For Stomach 180caps Obi Gould, DO 09/25/2015 Timolol Maleate0.5% Solution 1 drop each eye daily 15ml Obi Gould, DO 04/17/2015 Alfuzosin HCL ER10mg Tablets ER 24HR Take 1 Tablet By Mouth Every Day For Prostate 90tabs N40.0 Obi Gould, DO 04/17/2015 Oaberllfmzi1ez Tablets Take 1 Tablet By Mouth Every Day For Prostate 90tabs N40.0 Obi Gould, DO 04/17/2015 Ablihjsbfg02zl Tablets Take 1 Tablet By Mouth Every Day For Cholesterol Treatment 90tabs E78.00 Obi Gould, DO 04/17/2015 Oxycodone HCL5mg Tablets 1.5 tablet by mouth q12-24 hours as needed (per Daren Louie = LEWIS) Unknown Medications Administered in Office Medication SIG Qnty Indications Ordering Provider Date Injection Kenalog 10 MG [facility] [id number] Obi Stephens Ana Laura ParkBryanna, DO 11/28/2020 Immunizations CPT Code Status Date Vaccine Lot # [id number] Given 07/27/2023 Sarscov2 Vaccin e 50 mcg/0.5 ML For Im Use 12 Yrs And Older 85762 Given 07/27/2023 Influenza Vacci ne-Administered at another facility 88791 Given 07/01/2022 Pfizer Sars-Cov -2 (Covid-19) Vx, BiValent Booster, 12+ 83212 Given 07/01/2022 Influenza Vaccine High Do se 0.5ML Age 65 & > [address] Given 07/04/2021 Pfizer Sars-Cov -2 (Cov-19) vacc 30mcg/0.3ML 12Y+ EMR Doc Only U-FLU Given 06/19/2021 Influenza,Unspecified 36453 Given 12/28/2020 Pfizer Sars-Cov -2 (Cov-19) vacc 30mcg/0.3ML 12Y+ EMR Doc Only 80080 Given 12/07/2020 Pfizer Sars-Cov -2 (Cov-19) vacc 30mcg/0.3ML 12Y+ EMR Doc Only 63917 Given 07/05/2020 Influenza Virus Vaccine, Quadrivalent, Im Use 16262 Given 01/25/2020 Shingrix 19285 Given 08/04/2019 Influenza Vacci ne-Administered at another facility 63221 Given 08/04/2019 Shingrix 40292 Given 07/05/2018 Influenza Virus Vaccine, Recombinant D[place] [address] Given 08/05/2017 Influenza Vac, Split, Preservative Free High Dose Age 65 & > 36427 Given 07/02/2016 Pneumococcal Vaccine/Pneu movax 23 [id number] 91245 Given 08/01/2015 Influenza Virus Vaccine, Quadrivalent, Im Use 82868 Given 06/28/2015 Pneumococcal Conjugate-Pr evnar 13 [id number] 49924 Given 08/19/2014 Influenza Vac, Split 3 Yr s And Up 88431 Given 06/19/2014 Tdap (Tetanus, diphtheria & acel. pertussis) Adacel or Boostrix 76307 Refused 07/02/2016 Pneumococcal Vaccine/Pneu movax 23 [id number] Refused 07/02/2016 Influenza Vac, Split 3 Yr s And Up Vital Signs Date Vital Result Comment 05/21/2023 8:50am BP Systolic 138 mmHg BP Diastolic 75 mmHg Body Temperature 97.0 F Heart Rate 72 /min Respiratory Rate 12 /min Weight 211.25 lb Weight 95.823 kg Height 67.5 inches 5'7.50" BMI (Body Mass Index) 32.6 kg/m2 [place] Body Weight 148 lb 05/08/2023 4:12pm BP Systolic 156 mmHg BP Diastolic 94 mmHg BP Systolic Recheck 144 mmHg BP Diastolic Recheck 96 mmHg Body Temperature 98.3 F Heart Rate 84 /min Procedures Date Code Description Status 11/04/2023 79414 Physical Therapy Evaluation High Complexity Completed 11/04/2023 39809 Therapy Proc, Neuromuscular Reeducation Of Movement Completed 11/04/2023 12408 Therapy Proc 1/> Area 15Min Ea Completed 05/21/2023 3078F PVRP Diastolic BP <80 mmHg C ompleted 05/21/2023 3075F PVRP Systolic BP 130 To 139 MMHG Completed 12/03/2022 90822721 Colonoscopy Completed Medical Devices Description No Information Available Encounters Type Date Location Provider Dx Diagnosis Office Visit 05/21/2023 8:45a [facility] Obi Gould, DO I10 Essential (primary) hypertension R20.2 Paresthesia of skin E03.9 Hypothyroidism, unsp ecified E78.00 Pure hypercholestero lemia, unspecified 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, unspecified Assessments Date Code Description Provider 11/04/2023 M25.511 Pain in right shoulder Yadi Morris DPT 05/21/2023 I10 Essential (primary) hyperten jovanna Obi Gould, DO 05/21/2023 R20.2 Paresthesia Obi vela, DO 05/21/2023 E03.9 Hypothyroidism, unspecified Obi Gould, DO 05/21/2023 E78.00 Pure hypercholesterolemia, u nspecified Obi Gould, DO 05/21/2023 G31.9 Degenerative dis ease of nervous system, unspecified Obi Gould DO Plan of Treatment Future Appointment(s):* 11/16/2023 10:30 am - [facility] * 11/23/2023 1:15 pm - Obi Gould DO at [facility] Functional Status Description No Information Available Mental Status Description No Information Available Referrals Description No Information Available
--- OUTSIDE RECORDS SUMMARY | 2023-11-28 09:15 | External Medical Summary | Summary of Care ---
Author Name Unknown Organization [facility] Address [address] [place] [address] Phone [phone] Care Team Providers Care [employer] Name Role Phone Obi Gould DO Primary Care Provider [phone] Encounter Details Date Type Department Care Team (Late st Contact Info) Description 11/16/2023 Orders Only Unspecified Department Obi Gould, DO [address] [address] Allergies Active Allergy Reactions Criticality Noted Date Comments Carvedilol 02/03/2023 Urinary Retention. Urinary Retention. Grass Pollen(K-O-R-T-Swt Salvador) Medium 05/15/2015 Other reaction(s): Allergy test positive Grass, trees, sneezing, runny nose Other Allergy (See Comments) Allergy test positive Medium 05/15/2015 Grass, trees, sneezing, runny nose documented as of this encounter (statuses as of 11/16/2023) Medications Medication Sig Dispensed Refills Start Date [...] oxyCODONE HCl 5 MG Oral Tablet (Oxy IR)Indications:Faile d back syndrome Take 0.5 Tablets by mouth every 6 hours as needed for Pain, Moderate. Do not start before October 17, 2023. 60 Tablet 0 10/17/2023 Active documented as of this encounter (statuses as of 11/16/2023) Active Problems Problem Noted Date Diagnosed Date Desensitization to allergy shot 06/16/2017 GERD (gastroesophageal reflux disease) 5 S/P Jignesh fundoplication (w [facility] gastrostomy tube) procedure 10/16/2014 Wears glasses 10/16/2014 Chronic back pain 10/16/2014 BPH (benign prostatic hyperplasia) 10/16/2014 History of corneal transplant 10/16/2014 Keratoconus of both eyes 10/16/2014 Dyslipidemia 10/16/2014 Glaucoma 10/16/2014 Hypertension 10/16/2014 Hypothyroid 10/16/2014 Allergic rhinitis 10/16/2014 documented as of this encounter (statuses as of 11/16/2023) Immunizations Name Administration Dates Next Due COVID-19 mRNA, LNP-s, No Pre serve, 2-Dose Series ([employer] 07/04/2021,12/28/2020,12/07/2020 Covid-19, Mrna, Lnp-s, Pf, B ivalent, 30 Mcg, IM, 12 yrs and above ([employer] 07/01/2022 Pneumococcal Conjugate Vacc, 13 Valent (Prevnar) [...] Date Smoking Tobacco: Never Smokeless Tobacco: Never Alcohol Use Standard Drinks/Week Comments Yes 3.3 (1 standard drink = 0.6 oz p ure alcohol) socially Sex and Gender Information Value Date Recorded Sex Assigned at Not on file Gender Identity Not on file Sexual Orientation Not on file Job Start Date Occupation Industry Not on file Not on file Not on file documented as of this encounter Functional Status Functional Status Response [...] No 11/27/2015 documented as of this encounter Plan of Treatment Upcoming Encounters Date Type Department Care Team (Late st Contact Info) Description 11/17/2023 10:45 AM EST Immunization/Inje ction Allergy/Immunology, [address] [address] Nurse Carrie Mcgoverns [address] [place] [address] 11/18/2023 11:10 AM EST Office Visit Interventional Pain, [place] [facility] [address] [place] [address] Ann Louie PA-C [address] [place] [address] 07/19/2024 11:00 AM EDT Office Visit Allergy/Immunology, [place] [address] [place] [address] Syed Philippe MD [address] [place] [address] Health Maintenance Due Date Last Done Comments Depression Screening 1957 Albumin/Creatinine Ratio 1965 Hepatitis C Screening 1965 DTaP,Tdap,and Td Vaccines (1 - Tdap) 1966 Influenza Vaccine (FLU shot) (#1) 2023 07/01/2022, 06/19/2021, 06/06/2020, Additional history exists GFR 11/06/2023 11/06/2022, 02/02, 11/05/2021, Additional history exists TSH 11/06/2023 11/06/2022, 04/0 05/2022, 11/05/2021, Additional history exists COLONOSCOPY-EVERY 5 YRS AGES [...] Not on filedocumented as of this encounter Procedures Procedure Name Priority Date/Time Associated Diagnosis Comments URINALYSIS, REFLEX TO MICROSCOPIC Routine 11/16/2023 10:42 AM EST documented in this encounter Results * (ABNORMAL) URINALYSIS, REFLEX TO MICROSCOPIC (11/16/2023 10:42 AM EST) COLOR - OUTSIDE LAB LIGHT-YELLO W [facility] Comment:Document delivery by Kareen on behalf of [facility] APPEARANCE-OUTSI DE LAB CLEAR CLEAR [facility] Comment:Document delivery by Kareen on behalf of [facility] SPECIFIC GRAVITY - OUTSIDE LAB 1.020 1.005 - 1.025 [facility] Comment:Document delivery by Kareen on behalf of [facility] LEUKOCYTE-Outsid e Lab NEGATIVE NEGATIVE [facility] Comment:Document delivery by Kareen on behalf of [facility] NITRITE - OUTSIDE LAB NEGATIVE NEGATIVE [facility] Comment:Document delivery by Kareen on behalf of [facility] PH - OUTSIDE LAB 5.5(L) 6.0 - 7.5 [facility] Comment:Document delivery by Kareen on behalf of [facility] PROTEIN-OUTSIDE LAB NEGATIVE NEGATIVE [facility] Comment:Document delivery by Kareen on behalf of [facility] URINE GLUCOSE-OUTSIDE LAB NEGATIVE NEGATIVE [facility] Comment:Document delivery by Kareen on behalf of [facility] KETONE - OUTSIDE LAB NEGATIVE NEGATIVE [facility] Comment:Document delivery by Kareen on behalf of [facility] UROBILINOGEN - OUTSIDE LAB NORMAL NORMAL E.U./DL [facility] Comment:Document delivery by Kareen on behalf of [facility] BILIRUBIN-OUTSID E LAB NEGATIVE NEGATIVE [facility] Comment:Document delivery by Kareen on behalf of [facility] BLOOD - OUTSIDE LAB NEGATIVE NEGATIVE [facility] Comment:Document delivery by Kareen on behalf of [facility] WBC-U - OUTSIDE LAB 0-2 0-5/HPF /HPF [facility] Comment:Document delivery by Kareen on behalf of [facility] RBC-U - OUTSIDE LAB 0-2 0-5/HPF /HPF [facility] Comment:Document delivery by Kareen on behalf of [facility] BACTERIA - OUTSIDE LAB NONE SEEN NONE SEEN [facility] Comment:Document delivery by Kareen on behalf of [facility] SQUAMOUS - OUTSIDE LAB 0-2 0-5/HPF /HPF [facility] Comment:Document delivery by Kareen on behalf of [facility] 11/16/2023 10:4 2 AM EST Obi Gould DO LAB URINE ORDERAB LES [facility] [address] [place] [address] documented in this encounter Care Teams [employer] Relationship Specialty Start Date End Date Obi Gould DO [address] [place] [address] PCP - General Family Medicine 11/27/15 documented as of this encounter
--- OUTSIDE RECORDS SUMMARY | 2023-11-28 09:15 | External Medical Summary ---
Author Name Unknown Address Unknown Organization [facility]:[address] [place] [address] Laboratory Report Ordering Provider Test Date Status MARIA E LARSON 11/16/2023 10:42 Final Observation Date Value Abnormality Reference (Units ) Status Glucose 11/16/2023 16:30 96 70-110 (MG/DL ) Final BUN 11/16/2023 16:30 15 6-25 (MG/DL) Final Creatinine 11/16/2023 16:30 0.7 0.7-1.3 (MG/ DL) Final Sodium 11/16/2023 16:30 140 135-145 (MEQ/ L) Final Potassium 11/16/2023 16:30 4.3 3.5-5.0 (MEQ/ L) Final Cl 11/16/2023 16:30 105 95-107 (MEQ/L ) Final CO2 11/16/2023 16:30 26 24-31 (MEQ/L) Final Alk Phos 11/16/2023 16:30 55 43-122 (IU/L) Final ALT (Alanine aminotransferase) 11/16/2023 16:30 19 10-40 (IU/L) Final AST (Aspartate aminotransferase) 11/16/2023 16:30 18 3-42 (IU/L) Final Bilirubin, Total 11/16/2023 16:30 0.9 0.1-1. 3 (MG/DL) Final Calcium 11/16/2023 16:30 9.8 8.5-10.6 (MG/ DL) Final Protein 11/16/2023 16:30 6.5 5.8-8.0 (G/DL ) Final Albumin 11/16/2023 16:30 4.4 3.0-5.2 (G/DL ) Final GLOBULIN 11/16/2023 16:30 2.1 2.0-3.4 (G/DL ) Final GFR (estimated) 11/16/2023 16:30 117 >60 (ML /MIN/1.73 SQM) Final Performing Location [facility] [address] [place] [address]
--- OUTSIDE RECORDS SUMMARY | 2023-11-28 09:15 | External Medical Summary ---
Author Name Unknown Address Unknown Organization [facility]:[address] [place] [address] Laboratory Report Ordering Provider Test Date Status MARIA E LARSON 11/16/2023 10:42 Final Observation Date Value Abnormality Reference (Units ) Status WBC 11/16/2023 15:50 10.9 Above high normal 3.1-9.2 (10^3/M3) Final RBC 11/16/2023 15:50 5.04 4.00-5.80 (10^6/M3) Final Hemoglobin 11/16/2023 15:50 15.6 12.5-17.5 (GR/DL) Final HCT 11/16/2023 15:50 46.5 37.5-52.5 (%) Final MCV 11/16/2023 15:50 92.1 82.6-95.8 (CU MICR) Final MCH 11/16/2023 15:50 31.0 27.9-32.9 (NINO GR) Final MCHC 11/16/2023 15:50 33.7 32.6-35.4 (%) Final RDW 11/16/2023 15:50 14.2 11.4-14.6 (%) Final PLT 11/16/2023 15:50 224 140-350 (10^3/M3) Final MPV 11/16/2023 15:50 8.5 7.0-10.6 (CU MICR) Final Neutrophils/100 leukocytes in Blood 11/16/2023 15:50 64.8 40.0-75.0 (%) Final Lymphs % 11/16/2023 15:50 20.9 17.0-45.0 (%) Final Monos 11/16/2023 15:50 11.6 Above high normal 1.0-11.0 (%) Final %EOS 11/16/2023 15:50 2.2 0.0-6.0 (%) Final Basos 11/16/2023 15:50 0.5 0.0-2.0 (%) Final Neutrophils [#/volume] in Semen by Manual count 11/16/2023 15:50 7.1 1.5-8.0 (10^3/M3) Final Lymphs % 11/16/2023 15:50 2.3 0.8-3.2 (10^3/M3) Final Monos 11/16/2023 15:50 1.3 Above high normal 0.0-0.8 (10^3/M3) Final #EOS 11/16/2023 15:50 0.2 0.0-0.4 (10^3/m3) Final #BASO 11/16/2023 15:50 0.0 0.0-0.2 (10^3/m3) Final Performing Location [facility] [address] [place] [address]
--- OUTSIDE RECORDS SUMMARY | 2023-11-28 09:15 | External Medical Summary ---
Author Name Unknown Address Unknown Organization [facility]:[address] [place] [address] Laboratory Report Ordering Provider Test Date Status MARIA E LARSON 11/16/2023 10:42 Final Observation Date Value Abnormality Reference (Units ) Status Cholesterol 11/16/2023 16:30 112 0-200 (MG/D L) Final CHOLESTEROL
Less than 2 00mg/dl Low risk
201-239 mg/dl Borderline risk
Equal to or greater 240mg/dl High risk Triglyceride 11/16/2023 16:30 59 0-150 (MG/ DL) Final TRIGLYCERIDES
Less than 150mg/dl Normal
150-199mg/dl Borderline
200-499mg/dl High
Greater than 500mg/dl Very High HDL 11/16/2023 16:30 46 SEE COMMENT ( MG/DL) Final HDL
<40mg/dl Elevated R isk
41-59mg/dl Risk
>=60mg/dl Least Risk Cholesterol in LDL [Mass/vol ume] in Serum or Plasma 11/16/2023 16:30 63 0-130 (MG/DL) Final LDL
<100mg/dl Optimal<b r/> 100-129mg/dl Near Optimal
130-159mg/dl Borderline High
160-189mg/dl High
>=190 Very High Cholesterol in VLDL [Mass/vo lume] in Serum or Plasma 11/16/2023 16:30 11.8 SEE COMMENT (MG/DL ) Final VLDL
Less than 30mg/dl Normal HDL 11/16/2023 16:30 2.4 SEE COMMENT ( RATIO) Final CHOL/HDL
<4.0 Optimal<b r/> 4.0-5.0 Borderline
>6.0 High Risk NON-HDL 11/16/2023 16:30 66 SEE COMMENT ( MG/DL) Final NON-HDL
30mg/dl higher than LDL Target Performing Location [facility] [address] [place] [address]
--- OUTSIDE RECORDS SUMMARY | 2023-11-28 09:15 | External Medical Summary ---
Continuity of Care Document (CCD) Created on: November 16, 2023 Iris Tyrone Tanya External Reference #: [id number] : [id number] Sex: Male Author Name Unknown Organization [facility], [facility] Address [address] [place] [address] Phone [phone] Care Team Providers Care Electrical Test Engineer Name Role Phone Cesar Artuhr DO Care Team Information Rece iver [phone] Michael Barry MD Care Team Information Recei phill [phone] Shelley Madrigal MD Care Team Information Receive r [phone] Emiliano Benton MD Care Team Information Recei phill [phone] Jose Resendiz MD Care Team Information Rec eiver [phone] Problems Active Problems Provider Date Essential hypertension [...] Order ing Provider Date Aspirin Adult Low Bvaz05uk Tablets DR i by mouth every day R20.2 Quiana Lemus MD 05/08/2023 Proair Cvidboqyhh306(90Base) mcg/Act Aerosol inhale 1 times every 6 hours for shortness of breath/ cough (ok to sub ventolin if insurance prefers that) 1units R05.1 Obi Gould, DO 02/17/2023 Pmccijvuxl00xd Tablets Take One Tablet By Mouth Every Day For High Blood Pressure 90tabs I10 Obi Gould, DO 04/02/2022 Levothyroxine Wxpfux278mgw Tablets Take One Tablet By Mouth Every Day For Thryoid - 30-45 Min Prior To Breakfast - 90tabs E03.9 Obi Gould, DO 11/12/[address] Take 2 Capsules By Mouth Every Day For Stomach 180caps Obi Gould, DO 09/25/2015 Timolol Maleate0.5% Solution 1 drop each eye daily 15ml Obi Gould, DO 04/17/2015 Alfuzosin HCL ER10mg Tablets ER 24HR Take 1 Tablet By Mouth Every Day For Prostate 90tabs N40.0 Obi Gould, DO 04/17/2015 Dekzuqlocra9ko Tablets Take 1 Tablet By Mouth Every Day For Prostate 90tabs N40.0 Obi Gould, DO 04/17/2015 Ypugergqpo74wu Tablets Take 1 Tablet By Mouth Every Day For Cholesterol Treatment 90tabs E78.00 Obi Gould, DO 04/17/2015 Oxycodone HCL5mg Tablets 1.5 tablet by mouth q12-24 hours as needed (per Daren Louie = LEWIS) Unknown Medications Administered in Office Medication SIG Qnty Indications Ordering Provider Date Injection Kenalog 10 MG [facility] [id number] Obi Stephens Ana Laura ParkBryanna, DO 11/28/2020 Immunizations CPT Code Status Date Vaccine Lot # [id number] Given 07/27/2023 Sarscov2 Vaccin e 50 mcg/0.5 ML For Im Use 12 Yrs And Older 21877 Given 07/27/2023 Influenza Vacci ne-Administered at another facility 59978 Given 07/01/2022 Pfizer Sars-Cov -2 (Covid-19) Vx, BiValent Booster, 12+ 41628 Given 07/01/2022 Influenza Vaccine High Do se 0.5ML Age 65 & > 30382 Given 07/04/2021 Pfizer Sars-Cov -2 (Cov-19) vacc 30mcg/0.3ML 12Y+ EMR Doc Only U-FLU Given 06/19/2021 Influenza,Unspecified 25737 Given 12/28/2020 Pfizer Sars-Cov -2 (Cov-19) vacc 30mcg/0.3ML 12Y+ EMR Doc Only 22370 Given 12/07/2020 Pfizer Sars-Cov -2 (Cov-19) vacc 30mcg/0.3ML 12Y+ EMR Doc Only 23491 Given 07/05/2020 Influenza Virus Vaccine, Quadrivalent, Im Use 79601 Given 01/25/2020 Shingrix 68790 Given 08/04/2019 Influenza Vacci ne-Administered at another facility 40554 Given 08/04/2019 Shingrix 16154 Given 07/05/2018 Influenza Virus Vaccine, Recombinant Dna[place] [address] Given 08/05/2017 Influenza Vac, Split, Preservative Free High Dose Age 65 & > 17001 Given 07/02/2016 Pneumococcal Vaccine/Pneu movax 23 [id number] 95841 Given 08/01/2015 Influenza Virus Vaccine, Quadrivalent, Im Use 83523 Given 06/28/2015 Pneumococcal Conjugate-Pr evnar 13 [id number] 21592 Given 08/19/2014 Influenza Vac, Split 3 Yr s And Up 54226 Given 06/19/2014 Tdap (Tetanus, diphtheria & acel. pertussis) Adacel or Boostrix 61615 Refused 07/02/2016 Pneumococcal Vaccine/Pneu movax 23 65638 Refused 07/02/2016 Influenza Vac, Split 3 Yr s And Up Vital Signs Date Vital Result Comment 05/21/2023 8:50am BP Systolic 138 mmHg BP Diastolic 75 mmHg Body Temperature 97.0 F Heart Rate 72 /min Respiratory Rate 12 /min Weight 211.25 lb Weight 95.823 kg Height 67.5 inches 5'7.50" BMI (Body Mass Index) 32.6 kg/m2 [place] Body Weight 148 lb 05/08/2023 4:12pm BP Systolic 156 mmHg BP Diastolic 94 mmHg BP Systolic Recheck 144 mmHg BP Diastolic Recheck 96 mmHg Body Temperature 98.3 F Heart Rate 84 /min Results Test Acquired Date Facility Test Result H/L Range N ote General Health Panel 11/16/2023 [facility] [address] [place] [address] [phone] TSH 0.86 uIU/mL 0.50-6.00 Comp. Met 11/16/2023 [facility] [address] [place] [address] [phone] Glucose 96 mg/dL 70-110 BUN 15 mg/dL [...] GFR 117 ML/MIN/1.73SQM >60 CBC W/Diff 11/16/2023 [facility] [address] [place] [address] [phone] WBC 10.9 10^3/M3 High 3.1-9.2 RBC 5.04 10^6/M3 4.00-5.80 HGB 15.6 GR/DL 12.5-17.5 HCT 46.5 % 37.5-52.5 MCV 92.1 CUMICR 82.6-95.8 MCH 31.0 PICOGR 27.9-32.9 MCHC 33.7 % 32.6-35.4 RDW 14.2 % 11.4-14.6 PLT 224 10^3/M3 140-350 MPV 8.5 CUMICR 7.0-10.6 %Neut 64.8 % 40.0-75.0 %Lymph 20.9 % 17.0-45.0 %Millard 11.6 % High 1.0-11.0 %Eos 2.2 % 0.0-6.0 %Baso 0.5 % 0.0-2.0 #Neut 7.1 10^3/M3 1.5-8.0 #Lymph 2.3 10^3/M3 0.8-3.2 #Millard 1.3 10^3/M3 High 0.0-0.8 #Eos 0.2 10^3/m3 0.0-0.4 #Baso 0.0 10^3/m3 0.0-0.2 Lipid 11/16/2023 [facility] [address] [place] [address] [phone] Cholesterol 112 mg/dL 0-200 1 Triglyceride 59 mg/dL 0-150 2 HDLD 46 mg/dL See Comment 3 Measured LDL 63 mg/dL 0-130 4 Calc VLDL 11.8 mg/dL See Comment 5 Chol/HDL 2.4 RATIO See Comment 6 Non-HDL 66 mg/dL See Comment 7 Laboratory test finding 11/16/2023 [facility] [address] [place] [address] [phone] PSA Screen 0.2 ng/mL 0.0-4.0 Urinalysis 11/16/2023 [facility] [address] [place] [address] [phone] Color LIGHT-YELLO W Appearance CLEAR Clear Spec.Grav. [...] Status 11/16/2023 G0103 PSA Blood Screen Completed 11/06/2023 87847 Therapy Proc, Neuromuscular Reeducation Of Movement Completed 11/06/2023 87627 Therapy Proc 1/> Area 15Min Ea Completed 11/04/2023 67432 Physical Therapy Evaluation High Complexity Completed 11/04/2023 93274 Therapy Proc, Neuromuscular Reeducation Of Movement Completed 11/04/2023 47853 Therapy Proc 1/> Area 15Min Ea Completed 05/21/2023 3078F PVRP Diastolic BP <80 mmHg C ompleted 05/21/2023 3075F PVRP Systolic BP 130 To 139 MMHG Completed 12/03/2022 [id number] Colonoscopy Completed Medical Devices Description No Information Available Encounters Type Date Location Provider Dx Diagnosis Office Visit 05/21/2023 8:45a Lucila Gould DO I10 Essential (primary) hypertension R20.2 Paresthesia of skin E03.9 Hypothyroidism, unsp ecified E78.00 Pure hypercholestero lemia, unspecified 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
--- OUTSIDE RECORDS SUMMARY | 2023-11-28 09:15 | External Medical Summary | Continuity of Care Document ---
Author Name Unknown Organization [facility], [facility] Address [address] [place] [address] Phone [phone] Care Team Providers Care Dining Room Supervisor Name Role Phone Cesar Arthur DO Care Team Information Rece iver [phone] Michael Barry MD Care Team Information Recei phill [phone] Shelley Madrigal MD Care Team Information Receive r [phone] Emiliano Benton MD Care Team Information Recei phill [phone] Jose Resendiz MD Care Team Information Rec eiver [phone] Problems Active Problems Provider Date Essential hypertension [...] Order ing Provider Date Aspirin Adult Low Zgph50dm Tablets DR i by mouth every day R20.2 Quiana Lemus MD 05/08/2023 Proair Iyhqqdtcar358(90Base) mcg/Act Aerosol inhale 1 times every 6 hours for shortness of breath/ cough (ok to sub ventolin if insurance prefers that) 1units R05.1 Obi Gould, DO 02/17/2023 Evstiejdhd41dq Tablets Take One Tablet By Mouth Every Day For High Blood Pressure 90tabs I10 Obi Gould, DO 04/02/2022 Levothyroxine Efwgtt658vwh Tablets Take One Tablet By Mouth Every Day For Thryoid - 30-45 Min Prior To Breakfast - 90tabs E03.9 Obi Gould, DO 11/12/[address] Take 2 Capsules By Mouth Every Day For Stomach 180caps Obi Gould, DO 09/25/2015 Timolol Maleate0.5% Solution 1 drop each eye daily 15ml Obi Gould, DO 04/17/2015 Alfuzosin HCL ER10mg Tablets ER 24HR Take 1 Tablet By Mouth Every Day For Prostate 90tabs N40.0 Obi Gould, DO 04/17/2015 Dxyrmkscjll7bs Tablets Take 1 Tablet By Mouth Every Day For Prostate 90tabs N40.0 Obi Gould, DO 04/17/2015 Txwbuowtvj83rj Tablets Take 1 Tablet By Mouth Every Day For Cholesterol Treatment 90tabs E78.00 Obi Gould, DO 04/17/2015 Oxycodone HCL5mg Tablets 1.5 tablet by mouth q12-24 hours as needed (per Daren Louie = LEWIS) Unknown Medications Administered in Office Medication SIG Qnty Indications Ordering Provider Date Injection Kenalog 10 MG [facility] [id number] Obi Stephens Ana Laura ParkBryanna, DO 11/28/2020 Immunizations CPT Code Status Date Vaccine Lot # [id number] Given 07/27/2023 Sarscov2 Vaccin e 50 mcg/0.5 ML For Im Use 12 Yrs And Older 94695 Given 07/27/2023 Influenza Vacci ne-Administered at another facility 32125 Given 07/01/2022 Pfizer Sars-Cov -2 (Covid-19) Vx, BiValent Booster, 12+ 91826 Given 07/01/2022 Influenza Vaccine High Do se 0.5ML Age 65 & > 25481 Given 07/04/2021 Pfizer Sars-Cov -2 (Cov-19) vacc 30mcg/0.3ML 12Y+ EMR Doc Only U-FLU Given 06/19/2021 Influenza,Unspecified 85185 Given 12/28/2020 Pfizer Sars-Cov -2 (Cov-19) vacc 30mcg/0.3ML 12Y+ EMR Doc Only 98859 Given 12/07/2020 Pfizer Sars-Cov -2 (Cov-19) vacc 30mcg/0.3ML 12Y+ EMR Doc Only 19543 Given 07/05/2020 Influenza Virus Vaccine, Quadrivalent, Im Use 24414 Given 01/25/2020 Shingrix 39333 Given 08/04/2019 Influenza Vacci ne-Administered at another facility 81577 Given 08/04/2019 Shingrix 99136 Given 07/05/2018 Influenza Virus Vaccine, Recombinant Dna, [place] [address] Given 08/05/2017 Influenza Vac, Split, Preservative Free High Dose Age 65 & > 75970 Given 07/02/2016 Pneumococcal Vaccine/Pneu movax 23 [id number] 54638 Given 08/01/2015 Influenza Virus Vaccine, Quadrivalent, Im Use 93004 Given 06/28/2015 Pneumococcal Conjugate-Pr evnar 13 [id number] 97081 Given 08/19/2014 Influenza Vac, Split 3 Yr s And Up 98186 Given 06/19/2014 Tdap (Tetanus, diphtheria & acel. pertussis) Adacel or Boostrix 08393 Refused 07/02/2016 Pneumococcal Vaccine/Pneu movax 23 55548 Refused 07/02/2016 Influenza Vac, Split 3 Yr s And Up Vital Signs Date Vital Result Comment 05/21/2023 8:50am BP Systolic 138 mmHg BP Diastolic 75 mmHg Body Temperature 97.0 F Heart Rate 72 /min Respiratory Rate 12 /min Weight 211.25 lb Weight 95.823 kg Height 67.5 inches 5'7.50" BMI (Body Mass Index) 32.6 kg/m2 [place] Body Weight 148 lb 05/08/2023 4:12pm BP Systolic 156 mmHg BP Diastolic 94 mmHg BP Systolic Recheck 144 mmHg BP Diastolic Recheck 96 mmHg Body Temperature 98.3 F Heart Rate 84 /min Results Test Acquired Date Facility Test Result H/L Range N ote General Health Panel 11/16/2023 [facility] [address] [place] [address] [phone] TSH <pending> Laboratory test finding 11/16/2023 [facility] [address] [place] [address] [phone] PSA Screen <pending> Procedures Date Code Description Status 11/16/2023 G0103 PSA Blood Screen Completed 11/06/2023 51587 Therapy Proc, Neuromuscular Reeducation Of Movement Completed 11/06/2023 79157 Therapy Proc 1/> Area 15Min Ea Completed 11/04/2023 41799 Physical Therapy Evaluation High Complexity Completed 11/04/2023 25992 Therapy Proc, Neuromuscular Reeducation Of Movement Completed 11/04/2023 85266 Therapy Proc 1/> Area 15Min Ea Completed 05/21/2023 3078F PVRP Diastolic BP <80 mmHg C ompleted 05/21/2023 3075F PVRP Systolic BP 130 To 139 MMHG Completed 12/03/2022 [id number] Colonoscopy Completed Medical Devices Description No Information Available Encounters Type Date Location Provider Dx Diagnosis Office Visit 05/21/2023 8:45a [facility] Obi Gould DO I10 Essential (primary) hypertension R20.2 [...] M25.511 Pain in right shoulder Maida Roper Esperanzareid, DPT 11/04/2023 M25.511 Pain in right shoulder [...] 1:15 pm - Obi Gould DO at [facility] Functional Status Description No Information Available Mental Status Description No Information Available Referrals Description No Information Available
--- OUTSIDE RECORDS SUMMARY | 2023-11-28 09:15 | External Medical Summary | Continuity of Care Document ---
Author Name Unknown Organization [facility], [facility] Address [address] [place] [address] Phone [phone] Care Team Providers Care Merchandise Flow Manager Name Role Phone Cesar Arthur DO Care Team Information Rece iver [phone] Michael Barry MD Care Team Information Recei phill [phone] Shelley Madrigal MD Care Team Information Receive r [phone] Emiliano Benton MD Care Team Information Recei phill [phone] Jose Resendiz MD Care Team Information Rec eiver [phone] Problems Active Problems Provider Date Essential hypertension [...] Order ing Provider Date Aspirin Adult Low Rjvf94xt Tablets DR i by mouth every day R20.2 Quiana Lemus MD 05/08/2023 Proair Hstrqwvzkq762(90Base) mcg/Act Aerosol inhale 1 times every 6 hours for shortness of breath/ cough (ok to sub ventolin if insurance prefers that) 1units R05.1 Obi Gould, DO 02/17/2023 Bpeiezsnxi90ug Tablets Take One Tablet By Mouth Every Day For High Blood Pressure 90tabs I10 Obi Gould, DO 04/02/2022 Levothyroxine Ymahzw345ybg Tablets Take One Tablet By Mouth Every Day For Thryoid - 30-45 Min Prior To Breakfast - 90tabs E03.9 Obi Gould, DO 11/12/[address] Take 2 Capsules By Mouth Every Day For Stomach 180caps Obi Gould, DO 09/25/2015 Timolol Maleate0.5% Solution 1 drop each eye daily 15ml Obi Gould, DO 04/17/2015 Alfuzosin HCL ER10mg Tablets ER 24HR Take 1 Tablet By Mouth Every Day For Prostate 90tabs N40.0 Obi Gould, DO 04/17/2015 Jxibzvggxfm1mj Tablets Take 1 Tablet By Mouth Every Day For Prostate 90tabs N40.0 Obi Gould, DO 04/17/2015 Jbvdjdbdtm32rh Tablets Take 1 Tablet By Mouth Every Day For Cholesterol Treatment 90tabs E78.00 Obi Gould, DO 04/17/2015 Oxycodone HCL5mg Tablets 1.5 tablet by mouth q12-24 hours as needed (per Daren Louie = LEWIS) Unknown Medications Administered in Office Medication SIG Qnty Indications Ordering Provider Date Injection Kenalog 10 MG [facility] [id number] Obi Stephens Ana Laura ParkBryanna, DO 11/28/2020 Immunizations CPT Code Status Date Vaccine Lot # [id number] Given 07/27/2023 Sarscov2 Vaccin e 50 mcg/0.5 ML For Im Use 12 Yrs And Older 88596 Given 07/27/2023 Influenza Vacci ne-Administered at another facility 84618 Given 07/01/2022 Pfizer Sars-Cov -2 (Covid-19) Vx, BiValent Booster, 12+ 79405 Given 07/01/2022 Influenza Vaccine High Do se 0.5ML Age 65 & > 52580 Given 07/04/2021 Pfizer Sars-Cov -2 (Cov-19) vacc 30mcg/0.3ML 12Y+ EMR Doc Only U-FLU Given 06/19/2021 Influenza,Unspecified 20155 Given 12/28/2020 Pfizer Sars-Cov -2 (Cov-19) vacc 30mcg/0.3ML 12Y+ EMR Doc Only 63847 Given 12/07/2020 Pfizer Sars-Cov -2 (Cov-19) vacc 30mcg/0.3ML 12Y+ EMR Doc Only 91843 Given 07/05/2020 Influenza Virus Vaccine, Quadrivalent, Im Use 37699 Given 01/25/2020 Shingrix 46638 Given 08/04/2019 Influenza Vacci ne-Administered at another facility 77249 Given 08/04/2019 Shingrix 63080 Given 07/05/2018 Influenza Virus Vaccine, Recombinant Dna, [place] [address] Given 08/05/2017 Influenza Vac, Split, Preservative Free High Dose Age 65 & > 72403 Given 07/02/2016 Pneumococcal Vaccine/Pneu movax 23 [id number] 01975 Given 08/01/2015 Influenza Virus Vaccine, Quadrivalent, [place] Use 35146 Given 06/28/2015 Pneumococcal Conjugate-Pr evnar 13 [id number] 07517 Given 08/19/2014 Influenza Vac, Split 3 Yr s And Up 66214 Given 06/19/2014 Tdap (Tetanus, diphtheria & acel. pertussis) Adacel or Boostrix 05650 Refused 07/02/2016 Pneumococcal Vaccine/Pneu movax 23 21720 Refused 07/02/2016 Influenza Vac, Split 3 Yr s And Up Vital Signs Date Vital Result Comment 05/21/2023 8:50am BP Systolic 138 mmHg BP Diastolic 75 mmHg Body Temperature 97.0 F Heart Rate 72 /min Respiratory Rate 12 /min Weight 211.25 lb Weight 95.823 kg Height 67.5 inches 5'7.50" BMI (Body Mass Index) 32.6 kg/m2 [place] Body Weight 148 lb 05/08/2023 4:12pm BP Systolic 156 mmHg BP Diastolic 94 mmHg BP Systolic Recheck 144 mmHg BP Diastolic Recheck 96 mmHg Body Temperature 98.3 F Heart Rate 84 /min Procedures Date Code Description Status 11/06/2023 07012 Therapy Proc, Neuromuscular Reeducation Of Movement Completed 11/06/2023 58165 Therapy Proc 1/> Area 15Min Ea Completed 11/04/2023 60681 Physical Therapy Evaluation High Complexity Completed 11/04/2023 84987 Therapy Proc, Neuromuscular Reeducation Of Movement Completed 11/04/2023 68914 Therapy Proc 1/> Area 15Min Ea Completed 05/21/2023 3078F PVRP Diastolic BP <80 mmHg C ompleted 05/21/2023 3075F PVRP Systolic BP 130 To 139 MMHG Completed 12/03/2022 99116999 Colonoscopy Completed Medical Devices Description No Information Available Encounters Type Date Location Provider Dx Diagnosis Office Visit 05/21/2023 8:45a [facility] Obi Gould, I10 Essential (primary) hypertension R20.2 Paresthesia of skin E03.9 Hypothyroidism, unsp ecified E78.00 Pure hypercholestero lemia, unspecified 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 * 11/23/2023 1:15 pm - Obi Gould DO at [facility] Functional Status Description No Information Available Mental Status Description No Information Available Referrals Description No Information Available
--- OUTSIDE RECORDS SUMMARY | 2023-11-28 09:15 | External Medical Summary ---
Author Name Unknown Address Unknown Organization [facility] [address] [place] [id number] Laboratory Report Ordering Provider Test Date Status MARIA E LARSON 11/16/2023 10:42 Final Observation Date Value Abnormality Reference (Units ) Status TSH 11/16/2023 15:46 0.86 0.50-6.00 (uI U/mL) Final Performing Location [facility] [address] [place] [address]
--- OUTSIDE RECORDS SUMMARY | 2023-11-28 09:15 | External Medical Summary | Continuity of Care Document ---
Author Name Unknown Organization [facility], [facility] Address [address] [place] [address] Phone [phone] Care Team Providers Care Customs Port Director Name Role Phone Cesar Arthur DO Care Team Information Rece iver [phone] Michael Barry MD Care Team Information Recei phill [phone] Shelley Madrigal MD Care Team Information Receive r [phone] Emiliano Benton MD Care Team Information Recei phill [phone] Jose Resendiz MD Care Team Information Rec eiver [phone] Problems Active Problems Provider Date Essential hypertension [...] Order ing Provider Date Aspirin Adult Low Wxsf73kf Tablets DR i by mouth every day R20.2 Quiana Lemus MD 05/08/2023 Proair Idgeucwdkm357(90Base) mcg/Act Aerosol inhale 1 times every 6 hours for shortness of breath/ cough (ok to sub ventolin if insurance prefers that) 1units R05.1 Obi Gould, DO 02/17/2023 Kgozgmlypa55mf Tablets Take One Tablet By Mouth Every Day For High Blood Pressure 90tabs I10 Obi Gould, DO 04/02/2022 Levothyroxine Izbaaj199hmd Tablets Take One Tablet By Mouth Every Day For Thryoid - 30-45 Min Prior To Breakfast - 90tabs E03.9 Obi Gould, DO 11/12/[address] Take 2 Capsules By Mouth Every Day For Stomach 180caps Obi Gould, DO 09/25/2015 Timolol Maleate0.5% Solution 1 drop each eye daily 15ml Obi Gould, DO 04/17/2015 Alfuzosin HCL ER10mg Tablets ER 24HR Take 1 Tablet By Mouth Every Day For Prostate 90tabs N40.0 Obi Gould, DO 04/17/2015 Ulgsarysdiz4me Tablets Take 1 Tablet By Mouth Every Day For Prostate 90tabs N40.0 Obi Gould, DO 04/17/2015 Dkjyydsuuz12bp Tablets Take 1 Tablet By Mouth Every Day For Cholesterol Treatment 90tabs E78.00 Obi Gould, DO 04/17/2015 Oxycodone HCL5mg Tablets 1.5 tablet by mouth q12-24 hours as needed (per Daren Louie = [place]) Unknown Medications Administered in Office Medication SIG Qnty Indications Ordering Provider Date Injection Kenalog 10 MG [facility] [id number] Obi Stephens Ana Laura ParkBryanna, DO 11/28/2020 Immunizations CPT Code Status Date Vaccine Lot # [id number] Given 07/27/2023 Sarscov2 Vaccin e 50 mcg/0.5 ML For Im Use 12 Yrs And Older 35472 Given 07/27/2023 Influenza Vacci ne-Administered at another facility 24711 Given 07/01/2022 Pfizer Sars-Cov -2 (Covid-19) Vx, BiValent Booster, 12+ 77077 Given 07/01/2022 Influenza Vaccine High Do se 0.5ML Age 65 & > 35993 Given 07/04/2021 Pfizer Sars-Cov -2 (Cov-19) vacc 30mcg/0.3ML 12Y+ EMR Doc Only U-FLU Given 06/19/2021 Influenza,Unspecified 01891 Given 12/28/2020 Pfizer Sars-Cov -2 (Cov-19) vacc 30mcg/0.3ML 12Y+ EMR Doc Only 93338 Given 12/07/2020 Pfizer Sars-Cov -2 (Cov-19) vacc 30mcg/0.3ML 12Y+ EMR Doc Only 20644 Given 07/05/2020 Influenza Virus Vaccine, Quadrivalent, Im Use 31417 Given 01/25/2020 Shingrix 68218 Given 08/04/2019 Influenza Vacci ne-Administered at another facility 51166 Given 08/04/2019 Shingrix 00864 Given 07/05/2018 Influenza Virus Vaccine, Recombinant Dna[place] [address] Given 08/05/2017 Influenza Vac, Split, Preservative Free High Dose Age 65 & > 35000 Given 07/02/2016 Pneumococcal Vaccine/Pneu movax 23 [id number] 09356 Given 08/01/2015 Influenza Virus Vaccine, Quadrivalent, Im Use 33512 Given 06/28/2015 Pneumococcal Conjugate-Pr evnar 13 [id number] 21546 Given 08/19/2014 Influenza Vac, Split 3 Yr s And Up 89942 Given 06/19/2014 Tdap (Tetanus, diphtheria & acel. pertussis) Adacel or Boostrix 69019 Refused 07/02/2016 Pneumococcal Vaccine/Pneu movax 23 [id number] Refused 07/02/2016 Influenza Vac, Split 3 Yr s And Up Vital Signs Date Vital Result Comment 05/21/2023 8:50am BP Systolic 138 mmHg BP Diastolic 75 mmHg Body Temperature 97.0 F Heart Rate 72 /min Respiratory Rate 12 /min Weight 211.25 lb Weight 95.823 kg Height 67.5 inches 5'7.50" BMI (Body Mass Index) 32.6 kg/m2 [place] Body Weight 148 lb 05/08/2023 4:12pm BP Systolic 156 mmHg BP Diastolic 94 mmHg BP Systolic Recheck 144 mmHg BP Diastolic Recheck 96 mmHg Body Temperature 98.3 F Heart Rate 84 /min Results Test Acquired Date Facility Test Result H/L Range N ote General Health Panel 11/16/2023 [facility] [address] [place] [address] [phone] TSH <pending> Laboratory test finding 11/16/2023 [facility]. [address] [place] [address] [phone] PSA Screen <pending> Procedures Date Code Description Status 11/16/2023 G0103 PSA Blood Screen Completed 11/06/2023 32218 Therapy Proc, Neuromuscular Reeducation Of Movement Completed 11/06/2023 26934 Therapy Proc 1/> Area 15Min Ea Completed 11/04/2023 05846 Physical Therapy Evaluation High Complexity Completed 11/04/2023 33341 Therapy Proc, Neuromuscular Reeducation Of Movement Completed 11/04/2023 05108 Therapy Proc 1/> Area 15Min Ea Completed 05/21/2023 3078F PVRP Diastolic BP <80 mmHg C ompleted 05/21/2023 3075F PVRP Systolic BP 130 To 139 MMHG Completed 12/03/2022 [id number] Colonoscopy Completed Medical Devices Description No Information [...]
--- OUTSIDE RECORDS SUMMARY | 2023-11-28 09:15 | External Medical Summary | Summary of Care ---
Author Name Unknown Organization [facility] Address [address] [place] [address] Phone [phone] Care Team Providers Care Swaging Machine Operator Name Role Phone BryannaJohnyroge Du DO Primary Care Provider [phone] Reason for Visit * Reason Comments Allergy Injection Encounter Details Date Type Department Care Team (Late st Contact Info) Description 11/17/2023 10:45 AM EST Immunization/I njection Allergy/Immunology, [address] [place] [address] [place], Nurse Peds [address] [place] [address] Seasonal allergic rhinitis due to pollen* Allergies Active Allergy Reactions Criticality Noted Date Comments Carvedilol 02/03/2023 Urinary Retention. Urinary Retention. Grass Pollen(K-O-R-T-Swt [place]) Medium 05/15/2015 Other reaction(s): Allergy test positive Grass, trees, sneezing, runny nose Other Allergy (See Comments) Allergy test positive Medium 05/15/2015 Grass, trees, sneezing, runny nose documented as of this encounter (statuses as of 11/17/2023) Medications Medication Sig Dispensed Refills Start Date [...] as of this encounter (statuses as of 11/17/2023) Active Problems Problem Noted Date Diagnosed Date Desensitization to allergy shot 06/16/2017 GERD (gastroesophageal reflux disease) 5 S/P Jignesh fundoplication (w ithout gastrostomy tube) procedure 10/16/2014 Wears glasses 10/16/2014 Chronic back pain 10/16/2014 BPH (benign prostatic hyperplasia) 10/16/2014 History of corneal transplant 10/16/2014 Keratoconus of both eyes 10/16/2014 Dyslipidemia 10/16/2014 Glaucoma 10/16/2014 Hypertension 10/16/2014 Hypothyroid 10/16/2014 Allergic rhinitis 10/16/2014 documented as of this encounter (statuses as of 11/17/2023) Immunizations Name Administration Dates Next Due COVID-19 mRNA, LNP-s, No Pre serve, 2-Dose Series ([employer]) 07/04/2021,12/28/2020,12/07/2020 Covid-19, Mrna, Lnp-s, Pf, B ivalent, [...] as of this encounter Progress Notes * Herminia Noble LPN - 11/17/2023 10:32 AM EST Pre-injection Questionnaire Patient identified by stating name and birthdate: Yes 1. Antihistamines taken prior to injection? no (If no, may offer the patient Benadryl at 0.5mg/kg rounded to nearest 12.5mg) 2. Have you had increased asthma symptoms (chest tightness, wheezing, coughing, shortness of breath) in the past week? No 3. Have you had allergy symptoms,a cold, respiratory tract infection,fever or flu-like symptoms in the past week? No 4. Did you have any increased allergy or asthma symptoms, hives, generalized itching within 12 hours of receiving your last injection or swelling that persisted in the next day? No 5. Are you on any new medications or eye drops? No 6. Are you or have been diagnosed with a new medical condition? No Today's peak flow - There were no vitals taken for this visit. *Allergy Injection documentation located in Allergy Injections CPSL Flowsheet* documented in this encounter Nursing Notes * Herminia Noble LPN - 11/17/2023 11:00 AM EST Patient identified by stating full name and birthdate. Allergy immunotherapy administered as per order/ protocol. Patient tolerated well, reinforced waiting 30 minutes in the clinic after injections, verbalized understanding. Patient left clinic 30 minutes post injection in stable condition Herminia Noble LPN documented in this encounter Plan of Treatment Upcoming Encounters Date Type Department Care Team (Late st Contact Info) Description 11/18/2023 11:10 AM EST Office Visit Interventional Pain, [facility] [address] [place] [address] Ann Louie PA-C [address] [place] [address] 12/22/2023 10:30 AM EDT Immunization/Inje ction Allergy/Immunology, [address] [place] [address] [place], Nurse Peds [address] [place] [address] 01/19/2024 10:30 AM EDT Immunization/Inje ction Allergy/Immunology, [address] [address] [place], Nurse Peds [address] [place] [address] 02/02/2024 10:30 AM EDT Immunization/Inje ction Allergy/Immunology, [address] [address] [place], Nurse Peds [address] [place] [address] 07/19/2024 11:00 AM EDT Office Visit Allergy/Immunology, [address] [address] Syed Philippe MD [address] [place] [address] Health Maintenance Due Date Last Done Comments [...] as of this encounter Visit Diagnoses Diagnosis Seasonal allergic rhinitis due to pollen- Primary documented in this encounter Care Teams Swaging Machine Operator Relationship Specialty Start Date End Date Obi Gould DO [address] [place] [address] PCP - General Family Medicine 11/27/15 documented as of this encounter
--- OUTSIDE RECORDS SUMMARY | 2023-11-28 09:15 | External Medical Summary ---
Author Name Unknown Address Unknown Organization [facility] [address] [place] [address] Laboratory Report Ordering Provider Test Date Status MARIA E LARSON 11/16/2023 10:42 Final Observation Date Value Abnormality Reference (Units ) Status PSA 11/16/2023 15:42 0.2 0.0-4.0 (ng/m L) Final Performing Location [facility] [address] [place] [address]
--- OUTSIDE RECORDS SUMMARY | 2023-11-28 09:15 | External Medical Summary | Continuity of Care Document ---
Author Name Unknown Organization [facility] Address [address] [place] [address] Phone [phone] Care Team Providers Care Special Education Assistant Name Role Phone Cesar Arthur DO Care Team Information Rece iver [phone] Michael Barry MD Care Team Information Recei phill [phone] Shelley Madrigal MD Care Team Information Receive r [phone] Emiliano Benton MD Care Team Information Recei phill [phone] Jose Resendiz MD Care Team Information Rec eiver [phone] Problems Active Problems Provider Date Essential hypertension [...] Order ing Provider Date Aspirin Adult Low Zpzx31at Tablets DR i by mouth every day R20.2 Quiana Lemus MD 05/08/2023 Proair Bppfvnhtzz556(90Base) mcg/Act Aerosol inhale 1 times every 6 hours for shortness of breath/ cough (ok to sub ventolin if insurance prefers that) 1units R05.1 Obi Gould, DO 02/17/2023 Msyagpvbpu32gw Tablets Take One Tablet By Mouth Every Day For High Blood Pressure 90tabs I10 Obi Gould, DO 04/02/2022 Levothyroxine Cmjgpj552zeu Tablets Take One Tablet By Mouth Every Day For Thryoid - 30-45 Min Prior To Breakfast - 90tabs E03.9 Obi Gould, DO 11/12/[address] Take 2 Capsules By Mouth Every Day For Stomach 180caps Obi Gould, DO 09/25/2015 Timolol Maleate0.5% Solution 1 drop each eye daily 15ml Obi Gould, DO 04/17/2015 Alfuzosin HCL ER10mg Tablets ER 24HR Take 1 Tablet By Mouth Every Day For Prostate 90tabs N40.0 Obi Gould, DO 04/17/2015 Ccemdircekg1um Tablets Take 1 Tablet By Mouth Every Day For Prostate 90tabs N40.0 Obi Gould, DO 04/17/2015 Isccsrabke73dr Tablets Take 1 Tablet By Mouth Every Day For Cholesterol Treatment 90tabs E78.00 Obi Gould, DO 04/17/2015 Oxycodone HCL5mg Tablets 1.5 tablet by mouth q12-24 hours as needed (per Daren Louie = LEWIS) Unknown Medications Administered in Office Medication SIG Qnty Indications Ordering Provider Date Injection Kenalog 10 MG [facility] [id number] Obi Stephens Ana Laura ParkBryanna, DO 11/28/2020 Immunizations CPT Code Status Date Vaccine Lot # [id number] Given 07/27/2023 Sarscov2 Vaccin e 50 mcg/0.5 ML For Im Use 12 Yrs And Older 13772 Given 07/27/2023 Influenza Vacci ne-Administered at another facility 65518 Given 07/01/2022 Pfizer Sars-Cov -2 (Covid-19) Vx, BiValent Booster, 12+ 76121 Given 07/01/2022 Influenza Vaccine High Do se 0.5ML Age 65 & > 43211 Given 07/04/2021 Pfizer Sars-Cov -2 (Cov-19) vacc 30mcg/0.3ML 12Y+ EMR Doc Only U-FLU Given 06/19/2021 Influenza,Unspecified 37503 Given 12/28/2020 Pfizer Sars-Cov -2 (Cov-19) vacc 30mcg/0.3ML 12Y+ EMR Doc Only 53479 Given 12/07/2020 Pfizer Sars-Cov -2 (Cov-19) vacc 30mcg/0.3ML 12Y+ EMR Doc Only 32381 Given 07/05/2020 Influenza Virus Vaccine, Quadrivalent, Im Use 27683 Given 01/25/2020 Shingrix 76483 Given 08/04/2019 Influenza Vacci ne-Administered at another facility 54117 Given 08/04/2019 Shingrix 18104 Given 07/05/2018 Influenza Virus Vaccine, Recombinant Dna[place] [address] Given 08/05/2017 Influenza Vac, Split, Preservative Free High Dose Age 65 & > 18017 Given 07/02/2016 Pneumococcal Vaccine/Pneu movax 23 [id number] 12392 Given 08/01/2015 Influenza Virus Vaccine, Quadrivalent, Im Use 81117 Given 06/28/2015 Pneumococcal Conjugate-Pr evnar 13 [id number] 21370 Given 08/19/2014 Influenza Vac, Split 3 Yr s And Up 83673 Given 06/19/2014 Tdap (Tetanus, diphtheria & acel. pertussis) Adacel or Boostrix 46377 Refused 07/02/2016 Pneumococcal Vaccine/Pneu movax 23 [id number] Refused 07/02/2016 Influenza Vac, Split 3 Yr s And Up Vital Signs Date Vital Result Comment 05/21/2023 8:50am BP Systolic 138 mmHg BP Diastolic 75 mmHg Body Temperature 97.0 F Heart Rate 72 /min Respiratory Rate 12 /min Weight 211.25 lb Weight 95.823 kg Height 67.5 inches 5'7.50" BMI (Body Mass Index) 32.6 kg/m2 [place] Body Weight 148 lb 05/08/2023 4:12pm BP Systolic 156 mmHg BP Diastolic 94 mmHg BP Systolic Recheck 144 mmHg BP Diastolic Recheck 96 mmHg Body Temperature 98.3 F Heart Rate 84 /min Results Test Acquired Date Facility Test Result H/L Range N ote General Health Panel 11/16/2023 [facility]. [address] [place] [address] [phone] TSH 0.86 uIU/mL 0.50-6.00 Comp. Met 11/16/2023 [facility]. [address] [place] [address] [phone] Glucose 96 mg/dL 70-110 BUN 15 mg/dL [...] GFR 117 ML/MIN/1.73SQM >60 CBC W/Diff 11/16/2023 [facility]. [address] [place] [address] [phone] WBC 10.9 10^3/M3 High 3.1-9.2 RBC 5.04 10^6/M3 4.00-5.80 HGB 15.6 GR/DL 12.5-17.5 HCT 46.5 % 37.5-52.5 MCV 92.1 CUMICR 82.6-95.8 MCH 31.0 PICOGR 27.9-32.9 MCHC 33.7 % 32.6-35.4 RDW 14.2 % 11.4-14.6 PLT 224 10^3/M3 140-350 MPV 8.5 CUMICR 7.0-10.6 %Neut 64.8 % 40.0-75.0 %Lymph 20.9 % 17.0-45.0 %Irion 11.6 % High 1.0-11.0 %Eos 2.2 % 0.0-6.0 %Baso 0.5 % 0.0-2.0 #Neut 7.1 10^3/M3 1.5-8.0 #Lymph 2.3 10^3/M3 0.8-3.2 #Irion 1.3 10^3/M3 High 0.0-0.8 #Eos 0.2 10^3/m3 0.0-0.4 #Baso 0.0 10^3/m3 0.0-0.2 Lipid 11/16/2023 [facility]. [address] [place] [address] [phone] Cholesterol 112 mg/dL 0-200 1 Triglyceride 59 mg/dL 0-150 2 HDLD 46 mg/dL See Comment 3 Measured LDL 63 mg/dL 0-130 4 Calc VLDL 11.8 mg/dL See Comment 5 Chol/HDL 2.4 RATIO See Comment 6 Non-HDL 66 mg/dL See Comment 7 Laboratory test finding 11/16/2023 [facility]. [address] [place] [address] [phone] PSA Screen 0.2 ng/mL 0.0-4.0 Urinalysis 11/16/2023 [facility] [address] [place] [address] [phone] Color LIGHT-YELLO W Appearance CLEAR Clear Spec.Grav. [...] 11/16/2023 G0103 PSA Blood Screen Completed 11/11/2023 97513 Therapy Proc, Neuromuscular Reeducation Of Movement Completed 11/11/2023 34066 Therapy Proc 1/> Area 15Min Ea Completed 11/06/2023 77225 Therapy Proc, Neuromuscular Reeducation Of Movement Completed 11/06/2023 97954 Therapy Proc 1/> Area 15Min Ea Completed 11/04/2023 65314 Physical Therapy Evaluation High Complexity Completed 11/04/2023 43752 Therapy Proc, Neuromuscular Reeducation Of Movement Completed 11/04/2023 21169 Therapy Proc 1/> Area 15Min Ea Completed 05/21/2023 3078F PVRP Diastolic BP <80 mmHg C ompleted 05/21/2023 3075F PVRP Systolic BP 130 To 139 MMHG Completed 12/03/2022 [id number] Colonoscopy Completed Medical Devices Description No Information Available Encounters Type Date Location Provider Dx Diagnosis Office Visit 05/21/2023 8:45a [facility] Obi Gould, I10 Essential (primary) hypertension R20.2 Paresthesia of skin E03.9 Hypothyroidism, unsp ecified E78.00 Pure hypercholestero lemia, unspecified 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, unspecified Assessments Date Code Description Provider 11/16/2023 I10 Essential (primary) hypertroge nugent Lab - [facility] 11/16/2023 E78.00 Pure hypercholesterolemia, u nspecified Lab - [facility] 11/16/2023 Z12.5 Encounter for sc reening for malignant neoplasm of prostate Lab - [facility] 11/11/2023 M25.511 Pain in right shoulder Yadi sally Morris, DPT 11/06/2023 M25.511 Pain in right shoulder aMida Yee, DPT 11/04/2023 M25.511 Pain in right shoulder Yadi than Alexandra, DPT 05/21/2023 I10 Essential (primary) yasmany nugent Obi Gould, DO 05/21/2023 R20.2 Paresthesia Obi vela, DO 05/21/2023 E03.9 Hypothyroidism, unspecified Obi Gould, DO 05/21/2023 E78.00 Pure hypercholesterolemia, u nspecified Obi Gould, DO 05/21/2023 G31.9 Degenerative dis ease of nervous system, unspecified Obi Gould DO Plan of Treatment Future Appointment(s):* 11/23/2023 1:15 pm - Obi Gould DO at [facility] Functional Status Description No Information Available Mental Status Description No Information Available Referrals Description No Information Available
--- OUTSIDE RECORDS SUMMARY | 2023-11-28 09:15 | External Medical Summary | Continuity of Care Document ---
Author Name Unknown Organization [facility] Address [address] [place] [address] Phone [phone] Care Team Providers Care Senior Sas Programmer Name Role Phone Cesar Arthur DO Care Team Information Rece iver [phone] Michael Barry MD Care Team Information Recei phill [phone] Shelley Madrigal MD Care Team Information Receive r [phone] Emiliano Benton MD Care Team Information Recei phill [phone] Jose Resendiz MD Care Team Information Rec eiver [phone] Problems Active Problems Provider Date Essential hypertension Obi Gould DO O nset: 12/27/2015 Hypothyroidism Obi Gould DO Onset: 0 12/27/2015 Pure hypercholesterolemia Ana Lauar Palacios Onset: 12/27/2015 Bilateral primary open angle [...] Order ing Provider Date Aspirin Adult Low Sbdr74us Tablets DR i by mouth every day R20.2 Quiana Lemus MD 05/08/2023 Proair Stohovukmr066(90Base) mcg/Act Aerosol inhale 1 times every 6 hours for shortness of breath/ cough (ok to sub ventolin if insurance prefers that) 1units R05.1 Obi Gould, DO 02/17/2023 Gpiwsbqipf23xs Tablets Take One Tablet By Mouth Every Day For High Blood Pressure 90tabs I10 Obi Gould, DO 04/02/2022 Levothyroxine Rfekxm451rpe Tablets Take One Tablet By Mouth Every Day For Thryoid - 30-45 Min Prior To Breakfast - 90tabs E03.9 Obi Gould, DO 11/12/[address] Take 2 Capsules By Mouth Every Day For Stomach 180caps Obi Gould, DO 09/25/2015 Timolol Maleate0.5% Solution 1 drop each eye daily 15ml Obi Gould, DO 04/17/2015 Alfuzosin HCL ER10mg Tablets ER 24HR Take 1 Tablet By Mouth Every Day For Prostate 90tabs N40.0 Obi Gould, DO 04/17/2015 Ktfbbuhyikd5vu Tablets Take 1 Tablet By Mouth Every Day For Prostate 90tabs N40.0 Obi Gould, DO 04/17/2015 Aunfplfdlr77uw Tablets Take 1 Tablet By Mouth Every Day For Cholesterol Treatment 90tabs E78.00 Obi Gould, DO 04/17/2015 Oxycodone HCL5mg Tablets 1.5 tablet by mouth q12-24 hours as needed (per Daren Louie = [place]) Unknown Medications Administered in Office Medication SIG Qnty Indications Ordering Provider Date Injection Kenalog 10 MG [facility] [id number] Obi Stephens Ana Laura ParkBryanna, DO 11/28/2020 Immunizations CPT Code Status Date Vaccine Lot # [id number] Given 07/27/2023 Sarscov2 Vaccin e 50 mcg/0.5 ML For Im Use 12 Yrs And Older 05666 Given 07/27/2023 Influenza Vacci ne-Administered at another facility 98516 Given 07/01/2022 Pfizer Sars-Cov -2 (Covid-19) Vx, BiValent Booster, 12+ 29760 Given 07/01/2022 Influenza Vaccine High Do se 0.5ML Age 65 & > 20407 Given 07/04/2021 Pfizer Sars-Cov -2 (Cov-19) vacc 30mcg/0.3ML 12Y+ EMR Doc Only U-FLU Given 06/19/2021 Influenza,Unspecified 14768 Given 12/28/2020 Pfizer Sars-Cov -2 (Cov-19) vacc 30mcg/0.3ML 12Y+ EMR Doc Only 34438 Given 12/07/2020 Pfizer Sars-Cov -2 (Cov-19) vacc 30mcg/0.3ML 12Y+ EMR Doc Only 56697 Given 07/05/2020 Influenza Virus Vaccine, Quadrivalent, [place] Use 96241 Given 01/25/2020 Shingrix 51557 Given 08/04/2019 Influenza Vacci ne-Administered at another facility 44102 Given 08/04/2019 Shingrix 82974 Given 07/05/2018 Influenza Virus Vaccine, Recombinant Dna[place] [address] Given 08/05/2017 Influenza Vac, Split, Preservative Free High Dose Age 65 & > 52275 Given 07/02/2016 Pneumococcal Vaccine/Pneu movax 23 [id number] 48998 Given 08/01/2015 Influenza Virus Vaccine, Quadrivalent, Im Use 76993 Given 06/28/2015 Pneumococcal Conjugate-Pr evnar 13 [id number] 68058 Given 08/19/2014 Influenza Vac, Split 3 Yr s And Up 59520 Given 06/19/2014 Tdap (Tetanus, diphtheria & acel. pertussis) Adacel or Boostrix 00425 Refused 07/02/2016 Pneumococcal Vaccine/Pneu movax 23 [id number] Refused 07/02/2016 Influenza Vac, Split 3 Yr s And Up Vital Signs Date Vital Result Comment 05/21/2023 8:50am BP Systolic 138 mmHg BP Diastolic 75 mmHg Body Temperature 97.0 F Heart Rate 72 /min Respiratory Rate 12 /min Weight 211.25 lb Weight 95.823 kg Height 67.5 inches 5'7.50" BMI (Body Mass Index) 32.6 kg/m2 [place] Body Weight 148 lb 05/08/2023 4:12pm BP Systolic 156 mmHg BP Diastolic 94 mmHg BP Systolic Recheck 144 mmHg BP Diastolic Recheck 96 mmHg Body Temperature 98.3 F Heart Rate 84 /min Results Test Acquired Date Facility Test Result H/L Range N ote General Health Panel 11/16/2023 [facility]. [address] [place] [address] [phone] TSH <pending> Laboratory test finding 11/16/2023 [facility]. [address] [place] [address] [phone] PSA Screen <pending> Procedures Date Code Description Status 11/16/2023 G0103 PSA Blood Screen Completed 11/06/2023 85646 Therapy Proc, Neuromuscular Reeducation Of Movement Completed 11/06/2023 81185 Therapy Proc 1/> Area 15Min Ea Completed 11/04/2023 18787 Physical Therapy Evaluation High Complexity Completed 11/04/2023 09799 Therapy Proc, Neuromuscular Reeducation Of Movement Completed 11/04/2023 77522 Therapy Proc 1/> Area 15Min Ea Completed 05/21/2023 3078F PVRP Diastolic BP <80 mmHg C ompleted 05/21/2023 3075F PVRP Systolic BP 130 To 139 MMHG Completed 12/03/2022 [id number] Colonoscopy Completed Medical Devices Description No Information [...]
== END 2023-11-28 11:49 | disposition home or self-care (01) ==
LOC: PACUINP 10:30 → ASU 10:30 → 3E 15:35